=== PATIENT | male | born 1955 | race Caucasian/White ===

== ENCOUNTER 2017-01-15 13:32 | Emergency (ER) | payer SELFPAY ==
[~2017-01-15] VITALS: Ht 172.7 cm; Wt 72.0 kg
[~2017-01-15 13:32] MED LIST: ASPI325T33 PO; CIPR-9 PO; HYDR12.57 PO; LIPI10TA PO; NIFE60TA8 PO; WALKER WHEELS/F1 MIS
[2017-01-15 13:34] VITALS: BP 112/67; PULSE 54; RESP 16; TEMP 98.6; O2SAT 97
--- NOTE | 2017-01-15 14:31 | RADRPT ---
EXAM DATE/TIME: 01/15/2017 14:08 [facility] COMPARISON: CHEST SINGLE AP, January 06, 2017, 11:06. INDICATIONS : General weakness; Possible CVA. MEDICAL HISTORY : Stroke. SURGICAL HISTORY : None. ENCOUNTER: Initial ACUITY: 1 day PAIN SCORE: 0/10 LOCATION: Bilateral chest FINDINGS: A single view of the chest demonstrates the lungs to be symmetrically aerated without evidence of mas s, infiltrate or effusion. The cardiomediastinal contours are unremarkable. Osseous structures are intact. CONCLUSION: No acute disease. Franklyn Brito MD on January 15, 2017 at 14:27 Board Certified Radiologist. This report was verified electronically.
--- NOTE | 2017-01-15 14:48 | RADRPT ---
EXAM DATE/TIME: 01/15/2017 14:04 [facility] COMPARISON: CT BRAIN W/O CONTRAST, January 06, 2017, 11:09. INDICATIONS : Head pain due to fall. RADIATION DOSE: 48.11 CTDIvol (mGy) MEDICAL HISTORY : Cerebrovascular disease. SURGICAL HISTORY : None. ENCOUNTER: Initial ACUITY: 1 day PAIN SCALE: 2/10 LOCATION: Bilateral cranial TECHNIQUE: Multiple contiguous axial images were obtained of the head. Using automated exposure control and adj ustment of the mA and/or kV according to patient size, radiation dose was kept as low as reasonably a chievable to obtain optimal diagnostic quality images. DICOM format image data is available electro nically for review and comparison. FINDINGS: Diffuse cerebral atrophy is noted. Old lacunar infarcts are noted within the bilateral basal ganglia with the largest lacunar infarct noted in the left thalamus. Mild periventricular and subco rtical white matter small vessel ischemic changes are noted bilaterally. There is no acute infarct, acute hemorr yuri, mass effect or extra-axial fluid collections. CONCLUSION: 1. Old lacunar infarcts within the bilateral basal ganglia. 2. Mild periventricular and subcortical white matter small vessel ischemic changes bilaterally. 3. Diffuse cerebral atrophy. 4. No acute infarct, acute hemorrhage, mass effect or extra-axial fluid collections. Josesito Hurley MD on January 15, 2017 at 14:23 Board Certified Radiologist. This report was verified electronically.
[2017-01-15 14:56] LABS: AUTOMATED NEUTROPHIL # 7.4 TH/MM3 (1.8-7.7); BASOPHIL % 0.5 % (0.0-2.0); EOSINOPHIL # 0.1 TH/MM3 (0-0.4); HEMATOCRIT 40.5 % (39.0-51.0); HEMO FLAGS DIFF FINAL; LYMPH % 12.9 % (9.0-44.0); LYMPHOCYTE # 1.3 TH/MM3 (1.0-4.8); MEAN CELL VOLUME 94.4 FL (80.0-100.0); MEAN CORPUSCULAR HEMOGLOBIN 33.5 PG (27.0-34.0); MEAN CORPUSCULAR HGB CONC 35.5 % (32.0-36.0); MONO % 10.1 % (0.0-8.0); NEUT % 75.5 % (16.0-70.0); PLATELET COUNT 320 TH/MM3 (150-450); RED BLOOD COUNT 4.29 MIL/MM3 (4.50-5.90); RED CELL DISTRIBUTION WIDTH 13.3 % (11.6-17.2); WHITE BLOOD COUNT 9.8 TH/MM3 (4.0-11.0)
[2017-01-15 15:12] LABS: APTT (PATIENT) 25.8 SEC (24.3-30.1); INTERNATIONAL NORMALIZED RATIO 0.9 RATIO
[2017-01-15 15:17] LABS: BICARBONATE 23.1 MEQ/L (21.0-32.0); POTASSIUM 3.5 MEQ/L (3.5-5.1)
--- NOTE | 2017-01-15 15:18 | PD ---
HPI Chief Complaint: General Weakness Time Seen by Provider: 14:27 Travel History International Travel<30 days: No Contact w/Intl Traveler<30days: No Traveled to known affect area: No History of Present Illness HPI This 61-year-old man who presents to the emergency department complaining of joint weakness on both his legs went out from underneath him this morning. He describes abrupt onset of symmetric lower extremity weakness. He was recently admitted to the hospital 01/06 through 01/09 with right sided weakness found have a small subacute left lacunar infarct. He denies any other medical history. Workup including MRI, Holter monitor, carotids, all otherwise negative. States he was doing well until today shortly before arrival in both his legs gave out on him. No other recent illness or injury. No other complaints. History Past Medical History Narrative Medical Cerebrovascular disease PNEUMOCCOCAL Vaccine (Year): 3 Social History Alcohol Use: Yes (DAILY ) Tobacco Use: Yes (PACK A DAY ) Allergies-Medications (Allergen,Severity, Reaction): Coded Allergies: No Known Allergies (Verified , 01/06/17) Reported Meds & Prescriptions Reported Meds & Active Scripts Active Hydrochlorothiazide 12.5 Mg Cap 12.5 Mg PO DAILY 30 Days Aspirin EC (Aspirin) 325 Mg Tabdr 325 Mg PO DAILY 30 Days Nifedipine ER 24 HR (Nifedipine) 60 Mg Tab 60 Mg PO DAILY 30 Days Lipitor (Atorvastatin Calcium) 10 Mg Tab 10 Mg PO HS 30 Days Cipro (Ciprofloxacin HCl) 500 Mg Tab 500 Mg PO Q12H 2 Days Walker with Front Wheels (Device) 1 Mis Mis Ea .ROUTE DIRECTED Review of Systems Except as stated in HPI: all other systems reviewed are Neg Physical Exam Narrative GENERAL: Well-appearing 7-year-old man, little bit disheveled, nontoxic. SKIN: Focused skin assessment warm/dry. HEAD: Atraumatic. Normocephalic. EYES: Pupils equal and round. No scleral icterus. No injection or drainage. ENT: No nasal bleeding or discharge. Mucous membranes pink and moist. NECK: Trachea midline. No JVD. CARDIOVASCULAR: Regular rate and rhythm. No murmur appreciated. RESPIRATORY: No accessory muscle use. Clear to auscultation. Breath sounds equal bilaterally. GASTROINTESTINAL: Abdomen soft, non-tender, nondistended. Hepatic and splenic margins not palpable. MUSCULOSKELETAL: No obvious deformities. No clubbing. No cyanosis. No edema. NEUROLOGICAL: Awake and alert. No facial asymmetry. Sensation intact throughout. Strength full and equal upper and lower extremities. No pronator drift. Right lower extremity drift. Gait a little bit wide based and unsteady. Data Data Last Documented VS Vital Signs Date Time Temp Pulse Resp B/P (MAP) Pulse Ox O2 Delivery O2 Flow Rate FiO2 01/15/17 15:04 88 18 98 Room Air 01/15/17 13:34 98.6 112/67 (82) Orders Orders Electrocardiogram (01/15/17 13:47) Prothrombin Time / Inr (Pt) (01/15/17 13:47) Act Partial Throm Time (Ptt) (01/15/17 13:47) Complete Blood Count With Diff (01/15/17 13:47) Basic Metabolic Panel (Bmp) (01/15/17 13:47) Ct Brain W/O Iv Contrast(Rout) (01/15/17 13:47) Chest, Single Ap (01/15/17 13:47) Alcohol (Ethanol) (01/15/17 14:35) Ed Discharge Order (01/15/17 15:38) Labs Laboratory Tests Test 01/15/17 14:15 01/15/17 14:35 White Blood Count 9.8 TH/MM3 Red Blood Count 4.29 MIL/MM3 Hemoglobin 14.4 GM/DL Hematocrit 40.5 % Mean Corpuscular Volume 94.4 FL Mean Corpuscular Hemoglobin 33.5 PG Mean Corpuscular Hemoglobin Concent 35.5 % Red Cell Distribution Width 13.3 % Platelet Count 320 TH/MM3 Mean Platelet Volume 8.6 FL Neutrophils (%) (Auto) 75.5 % Lymphocytes (%) (Auto) 12.9 % Monocytes (%) (Auto) 10.1 % Eosinophils (%) (Auto) 1.0 % Basophils (%) (Auto) 0.5 % Neutrophils # (Auto) 7.4 TH/MM3 Lymphocytes # (Auto) 1.3 TH/MM3 Monocytes # (Auto) 1.0 TH/MM3 Eosinophils # (Auto) 0.1 TH/MM3 Basophils # (Auto) 0.0 TH/MM3 CBC Comment DIFF FINAL Differential Comment Prothrombin Time 10.0 SEC Prothromb Time International Ratio 0.9 RATIO Activated Partial Thromboplast Time 25.8 SEC Blood Urea Nitrogen 26 MG/DL Creatinine 1.37 MG/DL Random Glucose 136 MG/DL Calcium Level 8.6 MG/DL Sodium Level 133 MEQ/L Potassium Level 3.5 MEQ/L Chloride Level 98 MEQ/L Carbon Dioxide Level 23.1 MEQ/L Anion Gap 12 MEQ/L Estimat Glomerular Filtration Rate 53 ML/MIN Ethyl Alcohol Level LESS THAN 3 MG/DL MDM Medical Decision Making Medical Screen Exam Complete: Yes Emergency Medical Condition: Yes Interpretation(s) LABS: CBC unremarkable. BMP unremarkable. Coags unremarkable. Alcohol negative Head CT: Old lacunar infarcts within the bilateral basal ganglia. Mild periventricular white matter small vessel ischemic change bilaterally. Diffuse cerebral atrophy. Differential Diagnosis Generalized weakness, vitamin deficiency, lecture light abnormality, stroke, other Narrative Course Medical decision making INITIAL: Is a 7-year-old man presents emergent from with generalized lower extremity weakness in onset this morning. He appears homeless. He has a friend with him. Recent right sided CVA with extensive workup. Looks well now. Is a little wide based on study. We'll check labs, CT, x-ray, reassess. Diagnosis Primary Impression: Lower extremity weakness Additional Instructions: Take a full dose aspirin daily. Follow up with her primary doctor in the next 2-4 days. Med/Other Pt SpecificInfo: No Change to Meds Disposition: 01 DISCHARGE HOME Condition: Stable Lamin Barahona MD Jan 15, 2017 15:18
--- NOTE | 2017-01-16 14:46 | EKG ---
Date Performed: 01/15/2017 Time Performed: 14:38:17 PTAGE: 61 years EKG: Sinus rhythm WITH FREQUENT VENTRICULAR PREMATURE COMPLEXES WITH FREQUENT SUPRAVENTRICULAR PREMATURE COMPLEXES SEP [place] MYOCARDIAL INFARCTION ARRHYTHMIA IS NEW SINCE PRIOR TRACING ABNORMAL ECG PREVIOUS TRACING : 01/06/2017 11.50 DOCTOR: Tramaine Lebron Interpretating Date/Time 01/16/2017 14:45:38
== END 2017-01-15 16:10 | disposition home or self-care (01) ==
LOC: NEPC 13:32
DX: M62.81 Muscle weakness (generalized) (principal); I25.2 Old myocardial infarction; R94.31 Abnormal electrocardiogram [ECG] [EKG]; F17.200 Nicotine dependence, unspecified, uncomplicated; Z86.73 Personal history of transient ischemic attack (TIA), and cerebral infarction without residual deficits; Z79.82 Long term (current) use of aspirin; Z79.899 Other long term (current) drug therapy
CPT/HCPCS: 70450; 71010; 80048; 80307; 85025; 85610; 85730; 93005

== ENCOUNTER 2017-01-22 18:03 | Observation (INO) | payer SELFPAY ==
[~2017-01-22] VITALS: Ht 167.6 cm; Wt 65.0 kg
[2017-01-22 18:15] VITALS: BP 148/87; PULSE 98; RESP 16; TEMP 98.6; O2SAT 99
--- NOTE | 2017-01-22 20:32 | PD ---
HPI Chief Complaint: Altered Mental Status Time Seen by Provider: 20:20 Travel History International Travel<30 days: No Contact w/Intl Traveler<30days: No Traveled to known affect area: No History of Present Illness HPI patient arrives stating he doesn't feel right, that he is "confused", very nebulous on details, patient is able to move all extremities well. denies deshpande/cp /abdpain/n/v/d/....after some talking, pt agreed he had been drinking etoh PFSH Past Medical History Hx Anticoagulant Therapy: Yes Arthritis: No Asthma: No Autoimmune Disease: No Heart Rhythm Problems: No Cancer: No Cardiovascular Problems: No High Cholesterol: No Chemotherapy: No Chest Pain: No Congestive Heart Failure: No Cirrhosis: No COPD: No Cerebrovascular Accident: Yes Diabetes: No Diminished Hearing: No Endocrine: No GERD: No Glaucoma: No Genitourinary: No Hepatitis: No Hiatal Hernia: No Hypertension: No Immune Disorder: No Kidney Stones: No Musculoskeletal: No Neurologic: No Psychiatric: No Reproductive: No Respiratory: No Myocardial Infarction: No Radiation Therapy: No Renal Failure: No Seizures: No Sleep Apnea: No Thyroid Disease: No Ulcer: No PNEUMOCCOCAL Vaccine (Year): 3 Past Surgical History Abdominal Surgery: No AICD: No Genitourinary Surgery: No Pacemaker: No Thoracic Surgery: No Social History Alcohol Use: Yes (DAILY ) Tobacco Use: Yes (PACK A DAY ) Substance Use: No Allergies-Medications (Allergen,Severity, Reaction): Coded Allergies: No Known Allergies (Verified , 01/06/17) Reported Meds & Prescriptions Reported Meds & Active Scripts Active Hydrochlorothiazide 12.5 Mg Cap 12.5 Mg PO DAILY 30 Days Aspirin EC (Aspirin) 325 Mg Tabdr 325 Mg PO DAILY 30 Days Nifedipine ER 24 HR (Nifedipine) 60 Mg Tab 60 Mg PO DAILY 30 Days Lipitor (Atorvastatin Calcium) 10 Mg Tab 10 Mg PO HS 30 Days Cipro (Ciprofloxacin HCl) 500 Mg Tab 500 Mg PO Q12H 2 Days Walker with Front Wheels (Device) 1 Mis Mis Ea .ROUTE DIRECTED Review of Systems ROS Limitations: Poor Historian, Other: Except as stated in HPI: all other systems reviewed are Neg Physical Exam Narrative GENERAL: poorly kept, pants have been urinated on, SKIN: Warm and dry. HEAD: Atraumatic. Normocephalic. EYES: Pupils equal and round. No scleral icterus. No injection or drainage. ENT: No nasal bleeding or discharge. Mucous membranes pink and moist. NECK: Trachea midline. No JVD. CARDIOVASCULAR: Regular rate and rhythm. RESPIRATORY: No accessory muscle use. Clear to auscultation. Breath sounds equal bilaterally. GASTROINTESTINAL: Abdomen soft, non-tender, nondistended. Hepatic and splenic margins not palpable. MUSCULOSKELETAL: Extremities without clubbing, cyanosis, or edema. No obvious deformities. NEUROLOGICAL: Awake and alert. No obvious cranial nerve deficits. Motor grossly within normal limits. mild hemiparesis of rle 4/5 strength, all other extremities 5/5. Normal speech. PSYCHIATRIC: Appropriate mood and affect; insight and judgment normal. Data Data Last Documented VS Vital Signs Date Time Temp Pulse Resp B/P (MAP) Pulse Ox O2 Delivery O2 Flow Rate FiO2 01/22/17 20:18 74 97 Room Air 01/22/17 18:15 98.6 16 148/87 (107) Orders Orders Complete Blood Count With Diff (01/22/17 20:07) Comprehensive Metabolic Panel (01/22/17 20:07) Prothrombin Time / Inr (Pt) (01/22/17 20:07) Act Partial Throm Time (Ptt) (01/22/17 20:07) Troponin I (01/22/17 20:07) Blood Glucose (01/22/17 20:07) Ecg Monitoring (01/22/17 20:07) Iv Access Insert/Monitor (01/22/17 20:07) Oximetry (01/22/17 20:07) Urinalysis - C+S If Indicated (01/22/17 20:20) Ct Brain W/O Iv Contrast(Rout) (01/22/17 20:20) Drug Screen, Random Urine (01/22/17 20:20) Alcohol (Ethanol) (01/22/17 18:42) Electrocardiogram (01/22/17 21:36) Labs Laboratory Tests Test 01/22/17 18:42 01/22/17 20:20 White Blood Count 8.2 TH/MM3 Red Blood Count 3.79 MIL/MM3 Hemoglobin 12.7 GM/DL Hematocrit 36.0 % Mean Corpuscular Volume 95.1 FL Mean Corpuscular Hemoglobin 33.5 PG Mean Corpuscular Hemoglobin Concent 35.2 % Red Cell Distribution Width 13.2 % Platelet Count 247 TH/MM3 Mean Platelet Volume 8.9 FL Neutrophils (%) (Auto) 64.8 % Lymphocytes (%) (Auto) 21.6 % Monocytes (%) (Auto) 9.4 % Eosinophils (%) (Auto) 2.8 % Basophils (%) (Auto) 1.4 % Neutrophils # (Auto) 5.3 TH/MM3 Lymphocytes # (Auto) 1.8 TH/MM3 Monocytes # (Auto) 0.8 TH/MM3 Eosinophils # (Auto) 0.2 TH/MM3 Basophils # (Auto) 0.1 TH/MM3 CBC Comment DIFF FINAL Differential Comment Prothrombin Time 9.7 SEC Prothromb Time International Ratio 0.9 RATIO Activated Partial Thromboplast Time 26.6 SEC Blood Urea Nitrogen 12 MG/DL Creatinine 0.73 MG/DL Random Glucose 70 MG/DL Total Protein 6.9 GM/DL Albumin 3.0 GM/DL Calcium Level 8.2 MG/DL Alkaline Phosphatase 41 U/L Aspartate Amino Transf (AST/SGOT) 34 U/L Alanine Aminotransferase (ALT/SGPT) 34 U/L Total Bilirubin 0.3 MG/DL Sodium Level 129 MEQ/L Potassium Level 4.0 MEQ/L Chloride Level 97 MEQ/L Carbon Dioxide Level 20.9 MEQ/L Anion Gap 11 MEQ/L Estimat Glomerular Filtration Rate 110 ML/MIN Troponin I 0.33 NG/ML Ethyl Alcohol Level 227 MG/DL Urine Color LIGHT-YELLOW Urine Turbidity CLEAR Urine pH 5.0 Urine Specific [place] 1.008 Urine Protein NEG mg/dL Urine Glucose (UA) NEG mg/dL Urine Ketones NEG mg/dL Urine Occult Blood NEG Urine Nitrite NEG Urine Bilirubin NEG Urine Urobilinogen LESS THAN 2.0 MG/DL Urine Leukocyte Esterase NEG Urine RBC LESS THAN 1 /hpf Urine WBC 1 /hpf Urine Bacteria RARE /hpf Urine Hyaline Casts 1 /lpf Microscopic Urinalysis Comment CULT NOT INDICATED Urine Opiates Screen NEG Urine Barbiturates Screen NEG Urine Amphetamines Screen NEG Urine Benzodiazepines Screen NEG Urine Cocaine Screen NEG Urine Cannabinoids Screen NEG MDM Medical Decision Making Medical Screen Exam Complete: Yes Emergency Medical Condition: Yes Medical Record Reviewed: Yes Differential Diagnosis ich v electrolyte v etoh intoxication v chronic hemiparesis from previous cva Narrative Course upon evaluation, it was noted that patient had 5/5 to rue/lue/lle but rle 4/ 5.....patient has seen previously by neurologist and cleared. case management attempted to place patient and gave resources packet but pt refused and stated that he lives in the [facility] and that's were he lives and doesn't want to go anywhere else. patient currently after observation in er has improved on his "confusion" state and is nearly at this baseline Diagnosis Primary Impression: etoh intoxication Additional Impression: Elevated troponin Admitting Information Admitting Physician Requests: Observation Pierce Somers MD Jan 22, 2017 20:32
[2017-01-22 21:12] LABS: AUTOMATED NEUTROPHIL # 5.3 TH/MM3 (1.8-7.7); BASOPHIL # 0.1 TH/MM3 (0-0.2); BASOPHIL % 1.4 % (0.0-2.0); EOSINOPHIL # 0.2 TH/MM3 (0-0.4); EOSINOPHIL % 2.8 % (0.0-4.0); HEMO FLAGS DIFF FINAL; LYMPH % 21.6 % (9.0-44.0); LYMPHOCYTE # 1.8 TH/MM3 (1.0-4.8); MEAN CELL VOLUME 95.1 FL (80.0-100.0); MEAN CORPUSCULAR HEMOGLOBIN 33.5 PG (27.0-34.0); MEAN CORPUSCULAR HGB CONC 35.2 % (32.0-36.0); MONO % 9.4 % (0.0-8.0); NEUT % 64.8 % (16.0-70.0); PLATELET COUNT 247 TH/MM3 (150-450); RED BLOOD COUNT 3.79 MIL/MM3 (4.50-5.90); RED CELL DISTRIBUTION WIDTH 13.2 % (11.6-17.2); WHITE BLOOD COUNT 8.2 TH/MM3 (4.0-11.0)
--- NOTE | 2017-01-22 21:17 | RADRPT ---
EXAM DATE/TIME: 01/22/2017 20:58 [facility] COMPARISON: CT BRAIN W/O CONTRAST, January 15, 2017, 14:04. INDICATIONS : Altered mental status. RADIATION DOSE: 31.01 CTDIvol (mGy) MEDICAL HISTORY : Stroke. SURGICAL HISTORY : None. ENCOUNTER: Initial ACUITY: 1 day PAIN SCALE: 0/10 LOCATION: cranial TECHNIQUE: Multiple contiguous axial images were obtained of the head. Using automated exposure control and adj ustment of the mA and/or kV according to patient size, radiation dose was kept as low as reasonably a chievable to obtain optimal diagnostic quality images. DICOM format image data is available electro nically for review and comparison. FINDINGS: CEREBRUM: Atrophy with resulting ventriculomegaly. Chronic lacunar infarctions involving the basal ganglia bila terally as well as the left thalamus. Periventricular low attenuation change involving both cerebral hemispheres No evidence of midline shift, mass lesion, hemorrhage or acute infarction. No extra-axia l fluid collections are seen. POSTERIOR FOSSA: The cerebellum and brainstem are intact. The 4th ventricle is midline. The cerebellopontine angle i s unremarkable. EXTRACRANIAL: The visualized portion of the orbits is intact. SKULL: The calvaria is intact. No evidence of skull fracture. CONCLUSION: 1. No acute intracranial abnormality. 2. Atrophy and chronic small vessel ischemic change. Brayan Gotti Jr., MD on January 22, 2017 at 21:14 Board Certified Radiologist. This report was verified electronically.
[2017-01-22 21:19] LABS: APTT (PATIENT) 26.6 SEC (24.3-30.1); INTERNATIONAL NORMALIZED RATIO 0.9 RATIO; PROTHROMBIN TIME - PATIENT 9.7 SEC (9.8-11.6)
[2017-01-22 21:21] LABS: ANION GAP 11 MEQ/L (5-15); AST (GOT) 34 U/L (15-37); BICARBONATE 20.9 MEQ/L (21.0-32.0); BLOOD UREA NITROGEN 12 MG/DL (7-18); CHLORIDE 97 MEQ/L (98-107); GLOMERULAR FILTRATION RATE 110 ML/MIN (>89); SODIUM (NA) 129 MEQ/L (136-145)
[2017-01-22 21:22] LABS: ALT (GPT) 34 U/L (12-78)
[2017-01-22 21:26] LABS: ALCOHOL 227 MG/DL (0-5); ALKALINE PHOSPHATASE 41 U/L (45-117); TOTAL BILIRUBIN ADULT 0.3 MG/DL (0.2-1.0)
[2017-01-22 21:43] LABS: BACTERIA, URINE RARE /hpf; BLOOD, URINE NEG (NEG); COMMENT (UR) CULT NOT INDICATED; CULTURE IF INDICATED CULT NOT INDICATED; GLUCOSE,URINE NEG (NEG); HYALINE CAST, URINE 1 /lpf (RARE); KETONE, URINE NEG (NEG); NITRITE,URINE NEG (NEG); URINE COLOR LIGHT-YELLOW (YELLW/STRAW)
[2017-01-22] MEDS ORDERED: THIAMINE HCL 100 MG TAB PO ONE (22:15)
[2017-01-22] MEDS ORDERED: LORazepam 2 MG/ML VIAL IV PUSH PRN (22:15)
[2017-01-22] MEDS ORDERED: NALOXONE HCL 0.4 MG/ML AMP IV PUSH PRN (22:15)
[2017-01-22] MEDS ORDERED: SODIUM CHLORIDE 0.9% FLUSH 10 ML FLUSH IV FLUSH PRN (22:15)
--- NOTE | 2017-01-22 23:17 | HHI.HP ---
[facility] Service [place] [facility] Primary Care Physician No Primary Care Physician Admission Diagnosis ELEVATED TROPONIN, WEAKNESS Diagnoses: Chief Complaint: falls Travel History International Travel<30 Days: No Contact w/Intl Traveler <30 Da: No Traveled to Known Affected Are: No History of Present Illness 61 y/o male with a history of HTN (not on any medication and denies a history) and CVA was brought into the ED after being found stumbling and falling. Patient at first was only oriented x 2 but after waking up he became oriented x 3. He states someone brought be here because he was falling down. He states he only drank a 24 oz beer today and that was this morning, he states he was not drunk. He denies having any chest pain, sob, cough, fever or chills. He states he is homeless and does not take any medications, and denies having a history of medical problems. Review of Systems Except as stated in HPI: all other systems reviewed are Neg Past Family Social History Past Medical History Denies any medical history, states he takes no medication Per EMR: HTN, CVA Past Surgical History Denies any surgical history Reported Medications Reported Meds & Active Scripts Active Hydrochlorothiazide 12.5 Mg Cap 12.5 Mg PO DAILY 30 Days Aspirin EC (Aspirin) 325 Mg Tabdr 325 Mg PO DAILY 30 Days Nifedipine ER 24 HR (Nifedipine) 60 Mg Tab 60 Mg PO DAILY 30 Days Lipitor (Atorvastatin Calcium) 10 Mg Tab 10 Mg PO HS 30 Days Cipro (Ciprofloxacin HCl) 500 Mg Tab 500 Mg PO Q12H 2 Days Walker with Front Wheels (Device) 1 Mis Mis Ea .ROUTE DIRECTED Allergies: Coded Allergies: No Known Allergies (Verified , 01/06/17) Active Ordered Medications Current Medications Medications (Trade) Dose Ordered Sig/Luis M Route Start Time Stop Time Status Last Admin (NS Flush) 2 ml UNSCH PRN IV FLUSH 01/22/17 22:15 (NS Flush) 2 ml BID IV FLUSH 01/23/17 09:00 (Narcan Inj) 0.4 mg UNSCH PRN IV PUSH 01/22/17 22:15 (Ativan Inj) 1 mg Q2H PRN IV PUSH 01/22/17 22:15 (Librium) 20 mg QID PO 01/23/17 09:00 (Vitamin B1) 100 mg DAILY PO 01/23/17 09:00 Family History States he does not know there history Social History Tobacco use: 1 PPD Alcohol use: one 24oz beer a day Illicit drug use: Denies Physical Exam Vital Signs Vital Signs Date Time Temp Pulse Resp B/P (MAP) Pulse Ox O2 Delivery O2 Flow Rate FiO2 01/22/17 20:18 74 97 Room Air 01/22/17 18:15 98.6 98 16 148/87 (107) 99 Physical Exam GENERAL: This is an unkept homeless man in [facility] SKIN: No rashes, ecchymoses or lesions. Cool and dry. HEAD: Atraumatic. Normocephalic. EYES: Pupils equal round and reactive. Extraocular motions intact. ENT: Nose without bleeding, purulent drainage or septal hematoma. Airway patent. NECK: Trachea midline. No JVD or lymphadenopathy. Supple, nontender, no meningeal signs. CARDIOVASCULAR: Regular rate and rhythm without murmurs, gallops, or rubs. RESPIRATORY: Diminished at bases. No wheezes, rales, or rhonchi. GASTROINTESTINAL: Abdomen soft, non-tender, nondistended. BS x 4 MUSCULOSKELETAL: Extremities without clubbing, cyanosis, or edema. No joint tenderness, effusion, or edema noted. No calf tenderness. NEUROLOGICAL: Awake and alert. Motor and sensory grossly within normal limits. Slight 4/5 RLE residual weakness. Normal speech. Laboratory Laboratory Tests Test 01/22/17 18:42 01/22/17 20:20 White Blood Count 8.2 Red Blood Count 3.79 Hemoglobin 12.7 Hematocrit 36.0 Mean Corpuscular Volume 95.1 Mean Corpuscular Hemoglobin 33.5 Mean Corpuscular Hemoglobin Concent 35.2 Red Cell Distribution Width 13.2 Platelet Count 247 Mean Platelet Volume 8.9 Neutrophils (%) (Auto) 64.8 Lymphocytes (%) (Auto) 21.6 Monocytes (%) (Auto) 9.4 Eosinophils (%) (Auto) 2.8 Basophils (%) (Auto) 1.4 Neutrophils # (Auto) 5.3 Lymphocytes # (Auto) 1.8 Monocytes # (Auto) 0.8 Eosinophils # (Auto) 0.2 Basophils # (Auto) 0.1 CBC Comment DIFF FINAL Differential Comment Prothrombin Time 9.7 Prothromb Time International Ratio 0.9 Activated Partial Thromboplast Time 26.6 Blood Urea Nitrogen 12 Creatinine 0.73 Random Glucose 70 Total Protein 6.9 Albumin 3.0 Calcium Level 8.2 Alkaline Phosphatase 41 Aspartate Amino Transf (AST/SGOT) 34 Alanine Aminotransferase (ALT/SGPT) 34 Total Bilirubin 0.3 Sodium Level 129 Potassium Level 4.0 Chloride Level 97 Carbon Dioxide Level 20.9 Anion Gap 11 Estimat Glomerular Filtration Rate 110 Troponin I 0.33 Ethyl Alcohol Level 227 Urine Color LIGHT-YELLOW Urine Turbidity CLEAR Urine pH 5.0 Urine Specific Divide 1.008 Urine Protein NEG Urine Glucose (UA) NEG Urine Ketones NEG Urine Occult Blood NEG Urine Nitrite NEG Urine Bilirubin NEG Urine Urobilinogen LESS THAN 2.0 Urine Leukocyte Esterase NEG Urine RBC LESS THAN 1 Urine WBC 1 Urine Bacteria RARE Urine Hyaline Casts 1 Microscopic Urinalysis Comment CULT NOT INDICATED Urine Opiates Screen NEG Urine Barbiturates Screen NEG Urine Amphetamines Screen NEG Urine Benzodiazepines Screen NEG Urine Cocaine Screen NEG Urine Cannabinoids Screen NEG Result Diagram: 01/22/17184101/22/171841 Imaging Last Impressions Head CT 01/22/172019 Signed Impressions: Service Date/Time: Sunday, January 22, 2017 20:58 - CONCLUSION: 1. No acute intracranial abnormality. 2. Atrophy and chronic small vessel ischemic change. MD Iman Boo Jr. VTE Risk Assessment Caprini VTE Risk Assessment: Mod/High Risk (score >= 2) Caprini Risk Assessment Model Point Value = 1 Point Value = 2 Point Value = 3 Point Value = 5 Age 41-60 Minor surgery BMI > 25 kg/m2 Swollen legs Varicose veins or History of unexplained or recurrent spontaneous Oral contraceptives or hormone replacement Sepsis (< 1 month) Serious lung disease, including pneumonia (< 1 month) Abnormal pulmonary function Acute myocardial infarction Congestive heart failure (< 1 month) History of inflammatory bowel disease Medical patient at bed rest Age 61-74 Arthroscopic surgery Major open surgery (> 45 min) Laparoscopic surgery (> 45 min) Malignancy Confined to bed (> 72 hours) Immobilizing plaster cast Central venous access Age >= 75 History of VTE Family history of VTE Factor V Leiden Prothrombin [id number] Lupus anticoagulant Anticardiolipin antibodies Elevated serum homocysteine Heparin-induced thrombocytopenia Other congenital or acquired thrombophilia Stroke (< 1 month) Elective arthroplasty Hip, pelvis, or leg fracture Acute spinal cord injury (< 1 month) Prophylaxis Regimen Total Risk Factor Score Risk Level Prophylaxis Regimen 0-1 Low Early ambulation 2 Moderate Order ONE of the following: *Sequential Compression Device (SCD) *Heparin 5000 units SQ BID 3-4 Higher Order ONE of the following medications: *Heparin 5000 units SQ TID *Enoxaparin/Lovenox 40 mg SQ daily (WT < 150 kg, CrCl > 30 mL/min) *Enoxaparin/Lovenox 30 mg SQ daily (WT < 150 kg, CrCl > 10-29 mL/min) *Enoxaparin/Lovenox 30 mg SQ BID (WT < 150 kg, CrCl > 30 mL/min) AND/OR *Sequential Compression Device (SCD) 5 or more Highest Order ONE of the following medications: *Heparin 5000 units SQ TID (Preferred with Epidurals) *Enoxaparin/Lovenox 40 mg SQ daily (WT < 150 kg, CrCl > 30 mL/min) *Enoxaparin/Lovenox 30 mg SQ daily (WT < 150 kg, CrCl > 10-29 mL/min) *Enoxaparin/Lovenox 30 mg SQ BID (WT < 150 kg, CrCl > 30 mL/min) AND *Sequential Compression Device (SCD) Assessment and Plan Problem List: (1) Elevated troponin ICD Code: R74.8 - Abnormal levels of other serum enzymes Status: Acute (2) ETOH abuse ICD Code: F10.10 - Alcohol abuse, uncomplicated (3) Acute encephalopathy ICD Code: G93.40 - Encephalopathy, unspecified Status: Acute Assessment and Plan 61 y/o male with a history of HTN (not on any medication and denies a history) and CVA was brought into the ED after being found stumbling and falling. Acute toxic encephalopathy suspected from ETOH resulting in falls Head CT reviewed and shows no acute abnormalities. -Neuro checks -PT eval, fall precautions Elevated troponin, no chest pain r/o ACS Troponin .33, recently .11 on 01/07 -Serial troponin and EKGs -Monitor telemetry ETOH abuse, chronic -Encouraged to quit -Withdrawal precautions -Ativan PRN, Thiamine daily, Librium QID DVT prophylaxis: SCDs Discussed Condition With Patient and Michaela Starkey Jan 22, 2017 23:17
[2017-01-22 23:37] VITALS: BP 134/81; PULSE 72; RESP 18; TEMP 97.9; O2SAT 97
[2017-01-23 03:52] VITALS: BP 152/93; PULSE 77; RESP 20; TEMP 97.9; O2SAT 96
[2017-01-23] MEDS ORDERED: LORazepam 2 MG/ML VIAL IV PUSH PRN ×4 (06:45)
[2017-01-23] MEDS ORDERED: BISACODYL 10 MG SUPP RECTAL PRN (06:45)
[2017-01-23] MEDS ORDERED: FLUMAZENIL 0.5 MG/5 ML VIAL IV PUSH PRN (06:45)
[2017-01-23] MEDS ORDERED: LACTULOSE SYRUP 20 GM/30 ML CUP PO PRN (06:45)
[2017-01-23] MEDS ORDERED: ONDANSETRON HCL 4 MG/2 ML VIAL IVP PRN (06:45)
[2017-01-23] MEDS ORDERED: LORazepam 2 MG TAB PO PRN (06:45)
[2017-01-23] MEDS ORDERED: MAGNESIUM HYDROXIDE SUSP 30 ML CUP PO PRN (06:45)
[2017-01-23] MEDS ORDERED: ACETAMINOPHEN 325 MG TAB PO PRN ×2 (06:45)
[2017-01-23] MEDS ORDERED: HALOPERIDOL LACTATE 5 MG/ML AMP IM PRN (06:45)
[2017-01-23] MEDS ORDERED: SENNOSIDES 8.6 MG TAB PO PRN (06:45)
[2017-01-23] MEDS ORDERED: LORazepam 1 MG TAB PO PRN (06:45)
[2017-01-23 07:06] VITALS: PULSE 82
[2017-01-23] MEDS ORDERED: SODIUM CHLOR 0.9% 1000 ML INJ 1,000 ML IV SCH (07:30)
--- NOTE | 2017-01-23 07:32 | EKG ---
Date Performed: 01/23/2017 Time Performed: 01:31:55 PTAGE: 61 years EKG: Sinus rhythm WITH OCCASIONAL ECTOPIC PREMATURE COMPLEXES BORDERLINE ECG No significant change from prior electroc ardiogram. PREVIOUS TRACING : 01/15/2017 14.38 DOCTOR: Lalito Sow Interpretating Date/Time 01/23/2017 07:32:35
[2017-01-23 08:10] VITALS: BP 180/99; PULSE 70; RESP 18; TEMP 98.3; O2SAT 95
[2017-01-23] MEDS ORDERED: FOLIC ACID 1 MG TAB PO SCH (09:00)
[2017-01-23] MEDS ORDERED: DOCUSATE SODIUM 50 MG/SENNA 8.6 MG TAB PO SCH (09:00)
[2017-01-23] MEDS ORDERED: NIFEdipine 60 MG SUSTAINED RELEASE TAB PO SCH (09:00)
[2017-01-23] MEDS ORDERED: ASPIRIN EC 325 MG TABEC PO SCH (09:00)
[2017-01-23] MEDS ORDERED: SODIUM CHLORIDE 0.9% FLUSH 10 ML FLUSH IV FLUSH SCH (09:00)
[2017-01-23] MEDS ORDERED: THIAMINE HCL 100 MG TAB PO SCH (09:00)
[2017-01-23] MEDS ORDERED: MULTIVITAMINS/MINERALS THERAPEUTIC TAB PO SCH (09:00)
[2017-01-23 10:16] LABS: BICARBONATE 21.1 MEQ/L (21.0-32.0); POTASSIUM 4.8 MEQ/L (3.5-5.1)
[2017-01-23] MEDS ORDERED: LISI-519 PO (11:13)
[2017-01-23] MEDS ORDERED: THIA100 PO (11:13)
[2017-01-23] MEDS ORDERED: LIPI10TA PO (11:13)
[2017-01-23] MEDS ORDERED: FOLI1TAB6 PO (11:13)
[2017-01-23] MEDS ORDERED: NIFE60TA8 PO (11:13)
[2017-01-23] MEDS ORDERED: ASPI325T33 PO (11:13)
--- NOTE | 2017-01-23 11:15 | HHI.DCPOC ---
Discharge Care Plan Diagnosis: (1) HTN (hypertension) (2) Elevated troponin (3) Hemiparesis due to recent cerebral infarction (4) Acute encephalopathy (5) ETOH abuse Your Health Problems Are: Difficulty with ADL Goals to Promote Your Health Please abstain from all alcohol consumption * To prevent worsening of your condition and complications * To maintain your health at the optimal level Directions to Meet Your Goals Take your medications as prescribed Follow your dietary instruction Follow activity as directed Keep your appointments as scheduled Take your immunizations and boosters as scheduled If your symptoms worsen call your PCP, if no PCP go to Urgent Care Center or Emergency Room Smoking is Dangerous to Your Health. Avoid second hand smoke Call the 24-hour hour crisis hotline for domestic abuse at Shobha Lemon Jan 23, 2017 11:15
--- NOTE | 2017-01-23 11:15 | HHI.PR ---
Subjective Remarks Follow-up encephalopathy. Patient is awake and alert. Offers no complaints. Denies chest pain and shortness of breath. Discussed with RN Objective Vitals Vital Signs Date Time Temp Pulse Resp B/P (MAP) Pulse Ox O2 Delivery O2 Flow Rate FiO2 01/23/17 10:58 01/23/17 08:10 98.3 70 18 180/99 (126) 95 01/23/17 03:52 97.9 77 20 152/93 (112) 96 01/22/17 23:37 97.9 72 18 134/81 (98) 97 01/22/17 20:18 74 97 Room Air 01/22/17 18:15 98.6 98 16 148/87 (107) 99 I/O 01/22/17 01/22/17 01/22/17 01/23/17 01/23/17 01/23/17 07:00 15:00 23:00 07:00 15:00 23:00 Intake Total 200 ml 50 ml Balance 200 ml 50 ml Intake Oral 200 ml 50 ml Result Diagram: 01/22/17 1842 01/23/1745 Imaging Last Impressions Head CT 01/22/172019 Signed Impressions: Service Date/Time: Sunday, January 22, 2017 20:58 - CONCLUSION: 1. No acute intracranial abnormality. 2. Atrophy and chronic small vessel ischemic change. Brayan Gotti Jr., MD Objective Remarks GENERAL: This is an unkept homeless man in [facility] SKIN: No rashes, ecchymoses or lesions. Cool and dry. CARDIOVASCULAR: Regular rate and rhythm without murmurs, gallops, or rubs. RESPIRATORY: Diminished at bases. No wheezes, rales, or rhonchi. GASTROINTESTINAL: Abdomen soft, non-tender, nondistended. BS x 4 MUSCULOSKELETAL: Extremities without clubbing, cyanosis, or edema. No joint tenderness, effusion, or edema noted. No calf tenderness. NEUROLOGICAL: Awake and alert. Motor and sensory grossly within normal limits. Slight 4/5 RLE residual weakness. Normal speech. Procedures none A/P Problem List: (1) Elevated troponin ICD Code: R74.8 - Abnormal levels of other serum enzymes Status: Acute (2) ETOH abuse ICD Code: F10.10 - Alcohol abuse, uncomplicated (3) Acute encephalopathy ICD Code: G93.40 - Encephalopathy, unspecified Status: Acute Assessment and Plan 61 y/o male with a history of HTN (not on any medication and denies a history) and CVA was brought into the ED after being found stumbling and falling. Acute toxic encephalopathy suspected from ETOH resulting in falls Head CT reviewed and shows no acute abnormalities. -Neuro checks -PT eval, fall precautions Elevated troponin, no chest pain. EKG without acute ST elevation. This is secondary to falls. Continue aspirin. May undergo outpatient stress test ETOH abuse, chronic -Encouraged to quit -Withdrawal precautions -Ativan PRN, Thiamine daily, Librium QID Hyponatremia, mild. This is secondary to hydrochlorothiazide and alcohol. We' ll monitor DVT prophylaxis: SCDs Discharge Planning Discharge patient to home Condition on discharge: Improved Regular Diet as tolerated Ad Renee activity no driving Rx written: Lisinopril, thiamine and folic acid Follow-up with primary care physician Yossi Kemp MD Jan 23, 2017 11:15
[2017-01-23] MEDS ORDERED: LISINOPRIL 5 MG TAB PO ONE (11:30)
[2017-01-23 11:48] VITALS: BP 143/82; PULSE 92; RESP 18; TEMP 98.6; O2SAT 95
[2017-01-23 13:21] VITALS: PULSE 92
[2017-01-23 13:40] LABS: AUTOMATED NEUTROPHIL # 5.8 TH/MM3 (1.8-7.7); BASOPHIL # 0.1 TH/MM3 (0-0.2); BASOPHIL % 1.4 % (0.0-2.0); EOSINOPHIL % 0.7 % (0.0-4.0); HEMATOCRIT 41.8 % (39.0-51.0); HEMO FLAGS DIFF FINAL; LYMPH % 13.7 % (9.0-44.0); MEAN CELL VOLUME 95.6 FL (80.0-100.0); MEAN CORPUSCULAR HEMOGLOBIN 33.1 PG (27.0-34.0); MEAN CORPUSCULAR HGB CONC 34.7 % (32.0-36.0); MONO % 8.1 % (0.0-8.0); NEUT % 76.1 % (16.0-70.0); PLATELET COUNT 272 TH/MM3 (150-450); RED BLOOD COUNT 4.37 MIL/MM3 (4.50-5.90); RED CELL DISTRIBUTION WIDTH 13.3 % (11.6-17.2); WHITE BLOOD COUNT 7.6 TH/MM3 (4.0-11.0)
--- NOTE | 2017-01-23 13:53 | EKG ---
Date Performed: 01/23/2017 Time Performed: 07:50:04 PTAGE: 61 years EKG: Sinus rhythm SEPTAL MYOCARDIAL INFARCTION ABNORMAL ECG No significant change from prior electrocardiogram. PREVIOUS TRACING : 01/23/2017 01.31 DOCTOR: Lalito Sow Interpretating Date/Time 01/23/2017 13:51:57
[2017-01-23] MEDS ORDERED: ATORVASTATIN 10 MG TAB PO SCH (21:00)
[2017-01-24] MEDS ORDERED: LISINOPRIL 5 MG TAB PO SCH (09:00)
== END 2017-01-23 18:16 | disposition home or self-care (01) ==
LOC: NEPE 18:03 → NEDA 22:13 → NEPFCDU 22:59
PROVIDERS: ADMIT Internal Medicine; ATTEND Internal Medicine
DX: R74.8 Abnormal levels of other serum enzymes (principal); F10.10 Alcohol abuse, uncomplicated; G93.40 Encephalopathy, unspecified; T50.2X5A Adverse effect of carbonic-anhydrase inhibitors, benzothiadiazides and other diuretics, initial encounter; I10 Essential (primary) hypertension; E87.1 Hypo-osmolality and hyponatremia; R41.82 Altered mental status, unspecified; G81.90 Hemiplegia, unspecified affecting unspecified side; F10.129 Alcohol abuse with intoxication, unspecified; R94.31 Abnormal electrocardiogram [ECG] [EKG]; F17.200 Nicotine dependence, unspecified, uncomplicated; Z59.0 Homelessness; Z79.899 Other long term (current) drug therapy; Z79.82 Long term (current) use of aspirin; Z86.73 Personal history of transient ischemic attack (TIA), and cerebral infarction without residual deficits
CPT/HCPCS: 70450; 80048; 80053; 80307; 81001; 82550; 84484; 85025; 85610; 85730; 93005; 96360; G0378; G8987-GP; G8988-GP; J7030

== ENCOUNTER 2017-02-12 08:31 | Inpatient (IN) | payer SELFPAY ==
[2017-02-12] VITALS (7 sets, daily range): BP systolic 160–188; BP diastolic 87–103; PULSE 62–98; RESP 18–23; TEMP 98.1–98.6; O2SAT 96–98
[~2017-02-12] VITALS: Ht 172.7 cm; Wt 70.0 kg
[~2017-02-12 08:31] MED LIST changes: -CIPR-9 PO; +FOLI1TAB6 PO; -HYDR12.57 PO; +LISI-519 PO; +THIA100 PO
--- NOTE | 2017-02-12 08:58 | PD ---
HPI Chief Complaint: Neuro Symptoms/ Deficits Time Seen by Provider: 08:58 Travel History International Travel<30 days: No Contact w/Intl Traveler<30days: No Traveled to known affect area: No History of Present Illness HPI 61-year-old male came to the emergency room brought by EMS for right leg weakness. Patient is homeless and says that he noticed the weakness last night at some point. However this morning when he woke up and saw that he was unable to use his leg he decided to call 911. Patient was seen in the emergency room and admitted about one week ago for lacunar infarct. He was discharged home with medications including 325 mg of aspirin. Patient showed me that he has these medications and has been taking them. He is not sure if he took the aspirin yesterday. He also complains of some right upper extremity weakness but that has been there since the last time. Vital signs were stable. Patient is awake and answering questions appropriately. PFSH Past Medical History Narrative Medical List of his past medical, surgical, social and family history is reviewed from the nursing note. Hx Anticoagulant Therapy: Yes Arthritis: No Asthma: No Autoimmune Disease: No Blood Disorders: No Anxiety: No Depression: No Heart Rhythm Problems: No Cancer: No Cardiovascular Problems: No High Cholesterol: No Chemotherapy: No Chest Pain: No Congestive Heart Failure: No Cirrhosis: No COPD: No Cerebrovascular Accident: Yes Diabetes: No Diminished Hearing: No Endocrine: No GERD: No Glaucoma: No Genitourinary: Yes (incontinent periods) Hepatitis: No Hiatal Hernia: No Hypertension: Yes Immune Disorder: No Kidney Stones: No Musculoskeletal: Yes (weak generalized and right side slightly weaker) Neurologic: Yes (hx stroke and it effected right side) Psychiatric: Yes (anxiety and alcohol abuse) Reproductive: No Respiratory: No Myocardial Infarction: No Radiation Therapy: No Renal Failure: No Seizures: No Sleep Apnea: No Thyroid Disease: No Ulcer: No PNEUMOCCOCAL Vaccine (Year): 3 Past Surgical History Abdominal Surgery: No AICD: No Genitourinary Surgery: No Pacemaker: No Thoracic Surgery: No Social History Alcohol Use: Yes (DAILY ) Tobacco Use: Yes (PACK A DAY ) Substance Use: No Allergies-Medications (Allergen,Severity, Reaction): Coded Allergies: No Known Allergies (Verified , 01/06/17) Comments No known drug allergies. Reported Meds & Prescriptions Reported Meds & Active Scripts Active Lisinopril 5 Mg Tab 5 Mg PO DAILY Gnp Vitamin B-1 (Thiamine HCl) 100 Mg Tab 100 Mg PO DAILY 30 Days Folic Acid 1 Mg Tablet 1 Mg PO DAILY 30 Days Aspirin EC (Aspirin) 325 Mg Tabdr 325 Mg PO DAILY 30 Days Nifedipine ER 24 HR (Nifedipine) 60 Mg Tab 60 Mg PO DAILY 30 Days Lipitor (Atorvastatin Calcium) 10 Mg Tab 10 Mg PO HS 30 Days Walker with Front Wheels (Device) 1 Mis Mis Ea .ROUTE DIRECTED Narrative Medication List of his home medications reviewed from the nursing note. Review of Systems Except as stated in HPI: all other systems reviewed are Neg Neurologic: Positive: Weakness Physical Exam Narrative GENERAL: Awake, alert, disheveled, no obvious distress SKIN: Focused skin assessment warm/dry. Poor skin hygiene HEAD: Atraumatic. Normocephalic. EYES: Pupils equal and round. No scleral icterus. No injection or drainage. ENT: No nasal bleeding or discharge. Mucous membranes pink and moist. NECK: Trachea midline. No JVD. CARDIOVASCULAR: Regular rate and rhythm. No murmur appreciated. RESPIRATORY: No accessory muscle use. Clear to auscultation. Breath sounds equal bilaterally. GASTROINTESTINAL: Abdomen soft, non-tender, nondistended. Hepatic and splenic margins not palpable. MUSCULOSKELETAL: No obvious deformities. No clubbing. No cyanosis. No edema. NEUROLOGICAL: Awake and alert. No obvious cranial nerve deficits. Right lower extremity weakness, strength of 1 out of 5. Right upper extremity weakness with strength of 4 out of 5. Normal speech. PSYCHIATRIC: Appropriate mood and affect; insight and judgment normal. Data Data Last Documented VS Orders Orders Electrocardiogram (02/12/17 09:00) Prothrombin Time / Inr (Pt) (02/12/17 09:00) Complete Blood Count With Diff (02/12/17:) Basic Metabolic Panel (Bmp) (02/12/17 09:00) Creatine Kinase (Cpk) (02/12/17 09:00) Drug Screen, Random Urine (02/12/17 09:00) Troponin I (02/12/17 09:00) Ct Brain W/O Iv Contrast(Rout) (02/12/17 09:00) Chest, Single Ap (02/12/17 09:00) Ecg Monitoring (02/12/17 09:00) Iv Access Insert/Monitor (02/12/17 09:00) Oximetry (02/12/17 09:00) Sodium Chloride 0.9% Flush (Ns Flush) (02/12/17 09:00) Place In Observation (02/12/17 ) Code Status (02/12/17 12:10) Vital Signs (Adult) Q4H (02/12/17 12:10) Activity Oob With Assistance (02/12/17 12:10) Sodium Chloride 0.9% Flush (Ns Flush) (02/12/17 12:15) Sodium Chloride 0.9% Flush (Ns Flush) (02/12/17 21:00) Acetaminophen (Tylenol) (02/12/17 12:15) Ondansetron Inj (Zofran Inj) (02/12/17 12:15) Case Management Consult (02/12/17 12:10) Scd Bilateral/Knee High JUANA.BID (02/12/17 12:10) Acetaminophen (Tylenol) (02/12/17 12:15) Naloxone Inj (Narcan Inj) (02/12/17 12:15) Magnesium Hydroxide Liq (Milk Of Magnesi (02/12/17 12:15) Nih Stroke Scale - Nihss .On admission and discharge (02/12/17 12:10) Ot Request For Service (02/12/17 12:10) Consult Pt Eval & Treat (02/12/17 12:10) Case Management Consult (02/12/17 ) Activity Bed Rest (02/12/17 12:10) Scd Bilateral/Knee High JUANA.QSHIFT (02/12/17 12:10) Mra Brain W/O Contrast (Cow) (02/12/17 ) Mri Brain W/O Contrast (02/12/17 ) Consulting Sales Executive / Telemetry JUANA.Q8H (02/12/17 12:10) Admit Order (Ed Use Only) (02/12/17 12:16) Labs Laboratory Tests Test 02/12/17 09:05 02/12/17 11:20 White Blood Count 6.9 TH/MM3 Red Blood Count 4.45 MIL/MM3 Hemoglobin 14.4 GM/DL Hematocrit 42.5 % Mean Corpuscular Volume 95.3 FL Mean Corpuscular Hemoglobin 32.3 PG Mean Corpuscular Hemoglobin Concent 33.9 % Red Cell Distribution Width 13.3 % Platelet Count 261 TH/MM3 Mean Platelet Volume 7.9 FL Neutrophils (%) (Auto) 62.6 % Lymphocytes (%) (Auto) 19.2 % Monocytes (%) (Auto) 14.4 % Eosinophils (%) (Auto) 2.5 % Basophils (%) (Auto) 1.3 % Neutrophils # (Auto) 4.3 TH/MM3 Lymphocytes # (Auto) 1.3 TH/MM3 Monocytes # (Auto) 1.0 TH/MM3 Eosinophils # (Auto) 0.2 TH/MM3 Basophils # (Auto) 0.1 TH/MM3 CBC Comment DIFF FINAL Differential Comment Prothrombin Time 9.7 SEC Prothromb Time International Ratio 0.9 RATIO Blood Urea Nitrogen 12 MG/DL Creatinine 0.82 MG/DL Random Glucose 88 MG/DL Calcium Level 8.2 MG/DL Sodium Level 129 MEQ/L Potassium Level 4.0 MEQ/L Chloride Level 100 MEQ/L Carbon Dioxide Level 22.4 MEQ/L Anion Gap 7 MEQ/L Estimat Glomerular Filtration Rate 96 ML/MIN Total Creatine Kinase 184 U/L Troponin I 0.02 NG/ML Urine Opiates Screen NEG Urine Barbiturates Screen NEG Urine Amphetamines Screen NEG Urine Benzodiazepines Screen NEG Urine Cocaine Screen NEG Urine Cannabinoids Screen NEG MDM Medical Decision Making Medical Screen Exam Complete: Yes Emergency Medical Condition: Yes Medical Record Reviewed: Yes Interpretation(s) Twelve-lead EKG was reviewed by me. Normal sinus rhythm, left axis deviation, peaked T waves. Heart rate of 79 bpm. Differential Diagnosis CVA Narrative Course 12:[address] scan does not show any bleed. Blood test results are within acceptable limit except for his sodium which is mildly low and could be from chronic alcoholism. Patient will be given 1 dose of aspirin. I've admitted this patient to the hospitalist. He did not qualify for TPA given the window. The MRA that was done last time showed a tight stenosis at one of the cerebral arteries. Patient will require neurology consult and further MRI and MRA again. He is not a candidate for TPA. Procedures EKG Prior to Arrival: Yes Diagnosis Primary Impression: CVA (cerebral vascular accident) Qualified Codes: I63.9 - Cerebral infarction, unspecified Admitting Information Admitting Physician Requests: Russell Washington MD Feb 12, 2017 08:58
[2017-02-12] MEDS ORDERED: SODIUM CHLORIDE 0.9% FLUSH 10 ML FLUSH IVF PRN (09:00)
[2017-02-12 09:20] LABS: AUTOMATED NEUTROPHIL # 4.3 TH/MM3 (1.8-7.7); BASOPHIL # 0.1 TH/MM3 (0-0.2); BASOPHIL % 1.3 % (0.0-2.0); EOSINOPHIL # 0.2 TH/MM3 (0-0.4); EOSINOPHIL % 2.5 % (0.0-4.0); HEMATOCRIT 42.5 % (39.0-51.0); HEMO FLAGS DIFF FINAL; LYMPH % 19.2 % (9.0-44.0); LYMPHOCYTE # 1.3 TH/MM3 (1.0-4.8); MEAN CELL VOLUME 95.3 FL (80.0-100.0); MEAN CORPUSCULAR HEMOGLOBIN 32.3 PG (27.0-34.0); MEAN CORPUSCULAR HGB CONC 33.9 % (32.0-36.0); MONO % 14.4 % (0.0-8.0); NEUT % 62.6 % (16.0-70.0); PLATELET COUNT 261 TH/MM3 (150-450); RED BLOOD COUNT 4.45 MIL/MM3 (4.50-5.90); RED CELL DISTRIBUTION WIDTH 13.3 % (11.6-17.2); WHITE BLOOD COUNT 6.9 TH/MM3 (4.0-11.0)
[2017-02-12 09:26] LABS: INTERNATIONAL NORMALIZED RATIO 0.9 RATIO; PROTHROMBIN TIME - PATIENT 9.7 SEC (9.8-11.6)
--- NOTE | 2017-02-12 09:34 | EKG ---
Date Performed: 02/12/2017 Time Performed: 08:59:49 PTAGE: 61 years EKG: Sinus rhythm NORMAL ECG No significant change from prior electrocardiogram. DOCTOR: Lalito Sow Interpretating Date/Time 02/12/2017 09:33:35
[2017-02-12 09:36] LABS: BICARBONATE 22.4 MEQ/L (21.0-32.0)
--- NOTE | 2017-02-12 09:49 | RADRPT ---
EXAM DATE/TIME: 02/12/2017 09:12 [facility] COMPARISON: CT BRAIN W/O CONTRAST, January 15, 2017, 14:04. MRI BRAIN W & W/O CONTRAST, January 06, 2017, 18:[address] BRAIN W/O CONTRAST, January 22, 2017, 20:58. INDICATIONS : Evaluate for CVA. Right sided weakness for 2 weeks RADIATION DOSE: 32.39 CTDIvol (mGy) MEDICAL HISTORY : None SURGICAL HISTORY : None. ENCOUNTER: Initial ACUITY: 2 weeks PAIN SCALE: 0/10 LOCATION: cranial TECHNIQUE: Multiple contiguous axial images were obtained of the head. Using automated exposure control and adj ustment of the mA and/or kV according to patient size, radiation dose was kept as low as reasonably a chievable to obtain optimal diagnostic quality images. DICOM format image data is available electro nically for review and comparison. FINDINGS: The ventricles are stable and symmetrically prominent. There are areas of diminished density in the c vandana radiata bilaterally and in the left thalamus and internal capsule consistent with lacunar infar cts. These involvement present previously. There is no evidence of intracranial mass or hemorrhage. T here is nothing to suggest acute infarction. CONCLUSION: No acute cranial findings Ba Turcios MD on February 12, 2017 at 9:42 Board Certified Radiologist. This report was verified electronically.
--- NOTE | 2017-02-12 10:05 | RADRPT ---
EXAM DATE/TIME: 02/12/2017 09:26 [facility] COMPARISON: CHEST SINGLE AP, January 15, 2017, 14:08. INDICATIONS : Right leg and right side weakness. MEDICAL HISTORY : None. SURGICAL HISTORY : None. ENCOUNTER: Initial ACUITY: 1 day PAIN SCORE: 0/10 LOCATION: Right chest FINDINGS: A single view of the chest demonstrates the lungs to be symmetrically aerated without evidence of mas s, infiltrate or effusion. The cardiomediastinal contours are unremarkable. Osseous structures are intact. CONCLUSION: No acute disease. Brayan Gotti Jr., MD on February 12, 2017 at 10:02 Board Certified Radiologist. This report was verified electronically.
[2017-02-12] MEDS ORDERED: ACETAMINOPHEN 325 MG TAB PO PRN ×2 (12:15)
[2017-02-12] MEDS ORDERED: SODIUM CHLORIDE 0.9% FLUSH 10 ML FLUSH IV FLUSH PRN (12:15)
[2017-02-12] MEDS ORDERED: ONDANSETRON HCL 4 MG/2 ML VIAL IVP PRN (12:15)
[2017-02-12] MEDS ORDERED: NALOXONE HCL 0.4 MG/ML AMP IV PUSH PRN (12:15)
[2017-02-12] MEDS ORDERED: MAGNESIUM HYDROXIDE SUSP 30 ML CUP PO PRN (12:15)
[2017-02-12] MEDS ORDERED: ASPIRIN 325 MG TAB PO ONE (13:00)
--- NOTE | 2017-02-12 13:11 | HHI.HP ---
[facility] Primary Care Physician No Primary Care Physician Admission Diagnosis CVA Diagnoses: (1) Hemiparesis (2) Hemiparesis due to cerebrovascular disease (3) Hemiparesis of right dominant side Chief Complaint: Right sided weakness Travel History International Travel<30 Days: No Contact w/Intl Traveler <30 Da: No Traveled to Known Affected Are: No History of Present Illness 61-year-old homeless man with a history of alcohol abuse, recent NM and CVA was brought to the ED by EMS for evaluation of right sided lower extremity weakness as well as RUE. Patient states, yesterday he was walking using his walker he started noticing right lower extremity weakness, however was able to drag himself home. However, at some point overnight he had profound right lower extremity weakness with patient was unable to move his leg. He also noticed some slurring of the speech. He also reports some mild right upper extremity weakness. He was recently diagnosed with lacunar infarct in discharge home on aspirin as well as statin and oral antihypertensive medications. Patient states , he has been unable to take his medicines. He does have a history of alcohol abuse, and drinks an average 2-3 beers a day. He currently denies any GI bleed , shortness of breath or chest pain. Review of Systems Except as stated in HPI: all other systems reviewed are Neg Past Family Social History Past Medical History Hypertension Hyperlipidemia History of alcohol dependence Past Surgical History No previous surgeries Reported Medications Lisinopril 5 Mg Tab 5 Mg PO DAILY Gnp Vitamin B-1 (Thiamine HCl) 100 Mg Tab 100 Mg PO DAILY 30 Days Folic Acid 1 Mg Tablet 1 Mg PO DAILY 30 Days Aspirin EC (Aspirin) 325 Mg Tabdr 325 Mg PO DAILY 30 Days Nifedipine ER 24 HR (Nifedipine) 60 Mg Tab 60 Mg PO DAILY 30 Days Lipitor (Atorvastatin Calcium) 10 Mg Tab 10 Mg PO HS 30 Days Walker with Front Wheels (Device) 1 Mis Mis Ea .ROUTE DIRECTED Allergies: Coded Allergies: No Known Allergies (Verified , 01/06/17) Family History Denies family history of heart disease, CAD, CVA Social History smokes about a pack per day drink 2-3 beers a day denies substance- drug use Physical Exam Vital Signs Vital Signs Date Time Temp Pulse Resp B/P (MAP) Pulse Ox O2 Delivery O2 Flow Rate FiO2 02/12/17 13:01 02/12/17 09:04 (111) Room Air 02/12/17 08:56 98.2 79 23 160/87 (111) 96 Room Air Physical Exam GENERAL: This is a well-nourished, well-developed patient, in no apparent distress. SKIN: No rashes, ecchymoses or lesions. Cool and dry. HEAD: Atraumatic. Normocephalic. No temporal or scalp tenderness. EYES: Pupils equal round and reactive. Extraocular motions intact. No scleral icterus. No injection or drainage. ENT: Nose without bleeding, purulent drainage or septal hematoma. Throat without erythema, tonsillar hypertrophy or exudate. Uvula midline. Airway patent. NECK: Trachea midline. No JVD or lymphadenopathy. Supple, nontender, no meningeal signs. CARDIOVASCULAR: Regular rate and rhythm without murmurs, gallops, or rubs. RESPIRATORY: Clear to auscultation. Breath sounds equal bilaterally. No wheezes , rales, or rhonchi. GASTROINTESTINAL: Abdomen soft, non-tender, nondistended. No hepato-splenomegaly , or palpable masses. No guarding. MUSCULOSKELETAL: Extremities without clubbing, cyanosis, or edema. No joint tenderness, effusion, or edema noted. No calf tenderness. Negative Homans sign bilaterally. NEUROLOGICAL: Awake and alert. Cranial nerves II through XII intact. Motor and sensory grossly within normal limits. 2/5 RLE; 4/5 RUE. Laboratory Laboratory Tests Test 02/12/17 09:05 02/12/17 11:20 White Blood Count 6.9 Red Blood Count 4.45 Hemoglobin 14.4 Hematocrit 42.5 Mean Corpuscular Volume 95.3 Mean Corpuscular Hemoglobin 32.3 Mean Corpuscular Hemoglobin Concent 33.9 Red Cell Distribution Width 13.3 Platelet Count 261 Mean Platelet Volume 7.9 Neutrophils (%) (Auto) 62.6 Lymphocytes (%) (Auto) 19.2 Monocytes (%) (Auto) 14.4 Eosinophils (%) (Auto) 2.5 Basophils (%) (Auto) 1.3 Neutrophils # (Auto) 4.3 Lymphocytes # (Auto) 1.3 Monocytes # (Auto) 1.0 Eosinophils # (Auto) 0.2 Basophils # (Auto) 0.1 CBC Comment DIFF FINAL Differential Comment Prothrombin Time 9.7 Prothromb Time International Ratio 0.9 Blood Urea Nitrogen 12 Creatinine 0.82 Random Glucose 88 Calcium Level 8.2 Sodium Level 129 Potassium Level 4.0 Chloride Level 100 Carbon Dioxide Level 22.4 Anion Gap 7 Estimat Glomerular Filtration Rate 96 Total Creatine Kinase 184 Troponin I 0.02 Urine Opiates Screen NEG Urine Barbiturates Screen NEG Urine Amphetamines Screen NEG Urine Benzodiazepines Screen NEG Urine Cocaine Screen NEG Urine Cannabinoids Screen NEG Result Diagram: 02/12/1790402/12/17904 Imaging Last Impressions Head CT 02/12/17899 Signed Impressions: Service Date/Time: Sunday, February 12, 2017 09:12 - CONCLUSION: No acute cranial findings Ba Turcios MD Chest X-Ray 02/12/17899 Signed Impressions: Service Date/Time: Sunday, February 12, 2017 09:26 - CONCLUSION: No acute disease. Brayan Gotti Jr., MD Caprajeevi VTE Risk Assessment Caprini VTE Risk Assessment: Mod/High Risk (score >= 2) Caprini Risk Assessment Model Point Value = 1 Point Value = 2 Point Value = 3 Point Value = 5 Age 41-60 Minor surgery BMI > 25 kg/m2 Swollen legs Varicose veins or History of unexplained or recurrent spontaneous Oral contraceptives or hormone replacement Sepsis (< 1 month) Serious lung disease, including pneumonia (< 1 month) Abnormal pulmonary function Acute myocardial infarction Congestive heart failure (< 1 month) History of inflammatory bowel disease Medical patient at bed rest Age 61-74 Arthroscopic surgery Major open surgery (> 45 min) Laparoscopic surgery (> 45 min) Malignancy Confined to bed (> 72 hours) Immobilizing plaster cast Central venous access Age >= 75 History of VTE Family history of VTE Factor V Leiden Prothrombin [id number] Lupus anticoagulant Anticardiolipin antibodies Elevated serum homocysteine Heparin-induced thrombocytopenia Other congenital or acquired thrombophilia Stroke (< 1 month) Elective arthroplasty Hip, pelvis, or leg fracture Acute spinal cord injury (< 1 month) Prophylaxis Regimen Total Risk Factor Score Risk Level Prophylaxis Regimen 0-1 Low Early ambulation 2 Moderate Order ONE of the following: *Sequential Compression Device (SCD) *Heparin 5000 units SQ BID 3-4 Higher Order ONE of the following medications: *Heparin 5000 units SQ TID *Enoxaparin/Lovenox 40 mg SQ daily (WT < 150 kg, CrCl > 30 mL/min) *Enoxaparin/Lovenox 30 mg SQ daily (WT < 150 kg, CrCl > 10-29 mL/min) *Enoxaparin/Lovenox 30 mg SQ BID (WT < 150 kg, CrCl > 30 mL/min) AND/OR *Sequential Compression Device (SCD) 5 or more Highest Order ONE of the following medications: *Heparin 5000 units SQ TID (Preferred with Epidurals) *Enoxaparin/Lovenox 40 mg SQ daily (WT < 150 kg, CrCl > 30 mL/min) *Enoxaparin/Lovenox 30 mg SQ daily (WT < 150 kg, CrCl > 10-29 mL/min) *Enoxaparin/Lovenox 30 mg SQ BID (WT < 150 kg, CrCl > 30 mL/min) AND *Sequential Compression Device (SCD) Assessment and Plan Problem List: (1) Hemiparesis ICD Code: G81.90 - Hemiplegia, unspecified affecting unspecified side (2) Hemiparesis due to cerebrovascular disease ICD Code: I67.9 - Cerebrovascular disease, unspecified; G81.90 - Hemiplegia, unspecified affecting unspecified side (3) Hemiparesis of right dominant side ICD Code: G81.91 - Hemiplegia, unspecified affecting right dominant side (4) CVA (cerebral vascular accident) ICD Code: I63.9 - Cerebral infarction, unspecified Status: Acute (5) HTN (hypertension) ICD Code: I10 - Essential (primary) hypertension Assessment and Plan 61-year-old man with Hemiparesis of right dominant side Hemiparesis due to cerebrovascular disease Patient with a recent diagnosis lacunar infarct and will be treated per stroke protocol Head CT noted and review by me with no acute finding -Continue with aspirin and Start Plavix -Start statin therapy -NIHSS, Neuro checks, Monitor on telemetry -PT/OT evaluations -Allow permissive HTN, IV Vasotec and IV labetalol if SBP >220 -Check lipid profile and HgbA1c -Check carotid U/S -Check brain MRI/MRA -Neurology consultation PRN if brain MRI/MRA positive Hypertension Allowed permissive hypertension Tobacco abuse Tobacco counseling cessation provided Nicotine patch Alcohol abuse Alcohol cessation counseling provided Rally pack, CIWA protocol DVT prophylaxis: Bilateral SCDs Code Status Full code Discussed Condition With Patient, ED physician Problem Qualifiers (1) CVA (cerebral vascular accident): Qualified Codes: I63.9 - Cerebral infarction, unspecified Franklyn Guthrie MD Feb 12, 2017 13:11
[2017-02-12] MEDS ORDERED: LORazepam 2 MG/ML VIAL IV PUSH PRN ×8 (13:15→13:45)
[2017-02-12] MEDS ORDERED: FLUMAZENIL 0.5 MG/5 ML VIAL IV PUSH PRN ×2 (13:15→13:31)
[2017-02-12] MEDS ORDERED: LORazepam 2 MG TAB PO PRN ×2 (13:15→13:30)
[2017-02-12] MEDS ORDERED: LORazepam 1 MG TAB PO PRN ×2 (13:15→13:30)
--- NOTE | 2017-02-12 14:14 | RADRPT ---
EXAM DATE/TIME: 02/12/2017 13:02 [facility] COMPARISON: No previous studies available for comparison. INDICATIONS : Right sided weakness. Incontinence. MEDICAL HISTORY : Stroke SURGICAL HISTORY : Orthopaedic. ENCOUNTER: Initial ACUITY: 2 day PAIN SCORE: 0/10 LOCATION: head TECHNIQUE: Multiplanar, multisequence MRI of the brain was performed without contrast. FINDINGS: CEREBRUM: Cortical and central atrophy. However, the ventricles are somewhat prominent out of proportion to the degree of cortical atrophy and some degree of NPH should be considered. Punctate areas of diffusion restriction in the left centrum semiovale and bass radiata characteristic of an acute or subacute w tremayne matter infarct. No mass lesions.. No extraaxial fluid collections are seen. The pituitary glan d and suprasellar cistern are normal in configuration. WHITE MATTER: Periventricular and scattered deep white matter areas of increased T2 flair signal intensity characte ristic of moderately severe small vessel ischemic demyelination. POSTERIOR FOSSA: The cerebellum and brainstem are intact. The 4th ventricle is midline. The cerebellopontine angle is unremarkable. The cerebellar tonsils are normal in position. DIFFUSION IMAGING: Focal areas of diffusion restriction in the left bass radiata and centrum semiovale characteristic of small white matter infarcts. EXTRACRANIAL: The visualized portions of the orbits and paranasal sinuses are unremarkable. CONCLUSION: 1. Acute or subacute lacunar type infarcts in the left bass radiata and centrum semiovale. This may explain current clinical symptoms. 2. Findings are superimposed on baseline cortical and central atrophy. Again, the ventricles are some what prominent compared to degree of cortical atrophy an element of NPH may be considered [facility]. Yandel Storm MD on February 12, 2017 at 14:07 Board Certified Radiologist. This report was verified electronically.
--- NOTE | 2017-02-12 14:18 | RADRPT ---
EXAM DATE/TIME: 02/12/2017 13:02 [facility] COMPARISON: No previous studies available for comparison. INDICATIONS : Right sided weakness. MEDICAL HISTORY : Stroke SURGICAL HISTORY : Ortho. ENCOUNTER: Initial ACUITY: 1 day PAIN SCORE: 0/10 LOCATION: head Please note a normal MRA of the brain does not entirely exclude the possibility of a small aneurysm, nor the possibility of distal intracranial vessel disease. TECHNIQUE: 3D time of flight MRA was performed. Source images, multiplanar STS MIP, and 3D volume MIP reconstru ctions were reviewed. FINDINGS: There is focal significant stenotic narrowing involving the left middle cerebral artery distal to the anterior sylvian branch and proximal to the bifurcation. Contralateral right MCA is unremarkable. Th e anterior cerebral vessels are unremarkable. There is mild atherosclerotic irregularity of the poste rior cerebral vessels with apparent stenosis involving the lateral genu of the left HOME VISITS NURSE. There is no evidence of aneurysm or vascular malformation. No major vessel occlusion is appreciated. CONCLUSION: Findings of patchy intrinsic atherosclerotic cerebrovascular disease including what appears to be a s ignificant stenosis involving the left MCA and possible stenosis involving the left HOME VISITS NURSE. Ba Turcios MD on February 12, 2017 at 13:52 Board Certified Radiologist. This report was verified electronically.
[2017-02-12] MEDS: ATORVASTATIN 10 MG TAB PO SCH (23:05)
[2017-02-12] MEDS: SODIUM CHLORIDE 0.9% FLUSH 10 ML FLUSH IV FLUSH SCH (23:05)
[2017-02-13] VITALS (12 sets, daily range): BP systolic 146–198; BP diastolic 97–114; PULSE 67–93; RESP 18; TEMP 97.7–98.9; O2SAT 96–98
[2017-02-13] MEDS ORDERED: NICOTINE 21 MG/24 HR PATCH T-DERMAL SCH (09:00)
[2017-02-13] MEDS ORDERED: REMOVE OLD PATCH T-DERMAL SCH (09:00)
[2017-02-13] MEDS ORDERED: THIAMINE HCL 100 MG TAB PO SCH (09:00)
[2017-02-13] MEDS: CLOPIDOGREL 75 MG TAB PO SCH (09:26)
[2017-02-13] MEDS: ASPIRIN 325 MG TAB PO SCH (09:26)
[2017-02-13] MEDS: THIAMINE HCL 100 MG TAB PO SCH (09:27)
[2017-02-13] MEDS: SODIUM CHLORIDE 0.9% FLUSH 10 ML FLUSH IV FLUSH SCH ×2 (09:27→21:00)
--- NOTE | 2017-02-13 09:28 | HHI.PR ---
Subjective Remarks Follow up on patient with right sided weakness. Patient seen and examined. Patient denies any dizziness, headache or vision changes. States he was unable to get his medications filled secondary to cost following his last discharge 01/23/17. Reports worsening right lower extremity weakness. Denies any fever or chills. Denies any chest pain or shortness of breath. Denies any nausea, vomiting or abdominal pain. He is upset his cereal is getting soggy while I examine him. Objective Vitals Vital Signs Date Time Temp Pulse Resp B/P (MAP) Pulse Ox O2 Delivery O2 Flow Rate FiO2 02/13/17 07:39 98.9 92 18 156/101 (119) 97 02/13/17 05:38 191/112 (138) 02/13/17 04:17 75 02/13/17 04:06 98.0 75 18 189/113 (138) 96 02/13/17 00:12 98.2 67 18 185/97 (126) 98 02/13/17 00:05 67 02/12/17 22:10 98.1 62 18 188/95 (126) 97 02/12/17 20:01 91 02/12/17 15:52 94 02/12/17 15:36 98.1 98 18 184/97 (126) 98 02/12/17 14:51 81 02/12/17 13:52 98.6 80 18 176/103 (127) 97 02/12/17 13:01 I/O 02/12/17 02/12/17 02/12/17 02/13/17 02/13/17 02/13/17 07:00 15:00 23:00 07:00 15:00 23:00 Output Total 125 ml 550 ml Balance -125 ml -550 ml Output Urine Total 125 ml 550 ml # Voids 1 Result Diagram: 02/12/1790402/12/17904 Imaging Last Impressions Head CT 02/12/17899 Signed Impressions: Service Date/Time: Sunday, February 12, 2017 09:12 - CONCLUSION: No acute cranial findings Ba Turcios MD Chest X-Ray 02/12/17 09 Signed Impressions: Service Date/Time: Sunday, February 12, 2017 09:26 - CONCLUSION: No acute disease. Brayan Gotti Jr., MD Head Magnetic Resonance Angiography 02/12/17 0000 Signed Impressions: Service Date/Time: Sunday, February 12, 2017 13:02 - CONCLUSION: Findings of patchy intrinsic atherosclerotic cerebrovascular disease including what appears to be a significant stenosis involving the left MCA and possible stenosis involving the left BARREL RIFLER. Ba Turcios MD Brain MRI 02/12/17 0000 Signed Impressions: Service Date/Time: Sunday, February 12, 2017 13:02 - CONCLUSION: 1. Acute or subacute lacunar type infarcts in the left bass radiata and centrum semiovale. This may explain current clinical symptoms. 2. Findings are superimposed on baseline cortical and central atrophy. Again, the ventricles are somewhat prominent compared to degree of cortical atrophy an element of NPH may be considered in the appropriate clinical setting. Yandel Storm MD Objective Remarks GENERAL: This is a unkempt, disheveled well-nourished, well-developed male patient, in no apparent distress. Awake and alert. SKIN: Cool and dry. HEAD: Atraumatic. Normocephalic. EYES: Extraocular motions intact. No scleral icterus. No injection or drainage. ENT: Nose without bleeding or purulent drainage. Airway patent. MMM. NECK: Trachea midline. CARDIOVASCULAR: Regular rate and rhythm without murmurs, gallops, or rubs. RESPIRATORY: Nonlabored. Clear to auscultation. Breath sounds equal bilaterally. No wheezes, rales, or rhonchi. GASTROINTESTINAL: Abdomen soft, non-tender, nondistended. No hepato-splenomegaly , or palpable masses. No guarding. MUSCULOSKELETAL: Extremities without clubbing, cyanosis, or edema. No joint tenderness, effusion, or edema noted. No calf tenderness. NEUROLOGICAL: Awake and alert. Able to move all extremities spontaneously except RLE, 2/5 RLE; 4+/5 RUE. Motor and sensory grossly intact LUE and LLE. Normal speech. Medications and IVs Current Medications Medications (Trade) Dose Ordered Sig/Luis M Route Start Time Stop Time Status Last Admin (NS Flush) 2 ml UNSCH PRN IV FLUSH 02/12/17 12:15 (NS Flush) 2 ml BID IV FLUSH 02/12/17 21:00 02/12/17 23:05 (Tylenol) 650 mg Q4H PRN PO 02/12/17 12:15 (Zofran Inj) 4 mg Q6H PRN IVP 02/12/17 12:15 (Tylenol) 650 mg Q6H PRN PO 02/12/17 12:15 (Narcan Inj) 0.4 mg UNSCH PRN IV PUSH 02/12/17 12:15 (Milk Of Magnesia Liq) 30 ml Q12H PRN PO 02/12/17 12:15 (Romazicon Inj) 0.2 mg Q1M PRN IV PUSH 02/12/17 13:31 (Ativan) 1 mg Q4H PRN PO 02/12/17 13:30 (Ativan Inj) 1 mg Q4H PRN IV PUSH 02/12/17 13:30 (Ativan) 2 mg Q2H PRN PO 02/12/17 13:30 (Ativan Inj) 2 mg Q2H PRN IV PUSH 02/12/17 13:30 (Ativan Inj) 2 mg Q1H PRN IV PUSH 02/12/17 13:30 (Ativan Inj) 2 mg Q15M PRN IV PUSH 02/12/17 13:45 (Vitamin B1) 100 mg DAILY PO 02/13/17 09:00 (Habitrol 21 Mg Patch.24 Hr) 1 patch DAILY T-DERMAL 02/13/17 09:00 Miscellaneous Information 1 DAILY T-DERMAL 02/13/17 09:00 (Vasotec Inj) 1.25 mg Q4H PRN IV PUSH 02/12/17 14:30 (Aspirin) 325 mg DAILY PO 02/13/17 09:00 (Lipitor) 10 mg HS PO 02/12/17 21:00 02/12/17 23:05 (Plavix) 75 mg DAILY PO 02/13/17 09:00 A/P Problem List: (1) Hemiparesis ICD Code: G81.90 - Hemiplegia, unspecified affecting unspecified side (2) Hemiparesis due to cerebrovascular disease ICD Code: I67.9 - Cerebrovascular disease, unspecified; G81.90 - Hemiplegia, unspecified affecting unspecified side (3) Hemiparesis of right dominant side ICD Code: G81.91 - Hemiplegia, unspecified affecting right dominant side (4) CVA (cerebral vascular accident) ICD Code: I63.9 - Cerebral infarction, unspecified Status: Acute (5) HTN (hypertension) ICD Code: I10 - Essential (primary) hypertension Assessment and Plan 61-year-old homeless man with recent CVA, residual right sided weakness with medication noncompliance secondary to financial issues. Hemiparesis of right dominant side Hemiparesis due to cerebrovascular disease Recent left CVA 12/31 Medication noncompliance - patient not on any medications Patient with a recent diagnosis lacunar infarct and will be treated per stroke protocol Head CT noted and review by me with no acute finding -Brain MRI shows acute or subacute lacunar type infarct in the left bass radiata and centrum semiovale -MRA shows patchy intrinsic atherosclerotic cerebral vascular disease with significant stenosis involving the left MCA and possible stenosis involving left BARREL RIFLER. -Neurology consulted, appreciate assistance/recommendations. -Continue with aspirin and Plavix -Continue statin therapy -NIHSS, Neuro checks, Monitor on telemetry -PT/OT evaluations -Allow permissive HTN -HgbA1c 5.3 01/07/17 -LDL 124 01/07/17 Hyponatremia -asymptomatic -IVF -monitor sodium level - today's lab pending Hypertension -Allow permissive hypertension -IV Vasotec and IV labetalol if SBP >220 Tobacco abuse -Tobacco counseling cessation provided -Nicotine patch discontinued secondary to MRA stenoses Alcohol abuse -Alcohol cessation counseling provided -[facility] protocol -Thiamine/Folic acid/MVI daily DVT prophylaxis: Bilateral SCDs Problem Qualifiers (1) CVA (cerebral vascular accident): Qualified Codes: I63.9 - Cerebral infarction, unspecified Shobha Lemon Feb 13, 2017 09:28
[2017-02-13] MEDS ORDERED: MULTIVITAMIN TAB PO ONE (09:30)
[2017-02-13] MEDS ORDERED: FOLIC ACID 1 MG TAB PO ONE (09:30)
[2017-02-13] MEDS: SODIUM CHLOR 0.9% 1000 ML INJ 1,000 ML IV SCH ×2 (09:48→21:00)
--- NOTE | 2017-02-13 10:08 | MB ---
cc: EBER RYAN DATE OF CONSULTATION 02/13/2017 REASON FOR CONSULTATION This is a 61-year-old right-handed man with a history of hypertension. He tells me he had a stroke three weeks ago. He has not been taking an aspirin a day since. I actually saw him on January 06. He was a 61-year-old man, a smoker suddenly had weakness on the right side, came into the hospital, says he just had two beers a day at that time. 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 He had a left periventricular infarct, small, slight hyperintensity subcortical region on the left posterior MCA also. She had significant atrophy and some generous ventricles. Carotid ultrasound was negative. Echocardiogram showed a normal ejection fraction, mild aortic dilation, left atrial size was normal. Mitral valve, aortic valve were normal. He had a small infarct at that time. I had him rated for strength right triceps 4/5, finger extensors 5-/5, right lower extremity 4+/5. We will put him on an aspirin. MRA of the neck was normal. 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 He was on a statin with the LDL being increased. His troponin was initially increased. He went back to live on the [place]. He was actually up and in the shower and doing fairly well. He says that three days ago, his strength suddenly got weaker in the right leg and thus came in the hospital. Although yesterday, told the ER it just started yesterday. MEDICATIONS 1. Lisinopril 2. Thiamine 3. Folic acid 4. 325 of Aspirin 5. Nifedipine 6. Lipitor, however, it is unclear to me if he has actually been taking them or not. ALLERGIES NO KNOWN DRUG ALLERGIES. REVIEW OF SYSTEMS He denied any diabetes or hypercholesterolemia that he knew about, but he did have some the last time. He denies any ME, chest pain, palpitation, headache, A. fib, Coumadin, CABG, stent angioplasty, renal, hepatic or pulmonary disease, thyroid disease lupus, ulcer, cancer or seizure. SOCIAL HISTORY He is a drinker and a smoker living on the street. FAMILY HISTORY Negative for cancer, seizure, or stroke according to the patient. PHYSICAL EXAM On exam, blood pressure 160/87 as high as 191/112. NECK: There are no carotid bruits. HEART: Regular rhythm. I did not detect a murmur. NEUROLOGIC: Pupils are equal. Visual roberts are full. Extraocular intact without nystagmus. Face moves symmetrically. Tongue was midline. He does have a drift on the right side. Tricep best testing a 5-/5. Finger extensors, 5-/5. Left upper and lower extremity strength normal. Right lower extremity is weak there about 4/5 in the iliopsoas at 4-/5. He would not let me check the bottom of his feet, but his tibialis anterior was 5-/5 on the right and 5/5 on the left. DTRs are trace throughout. The toes, he would not let me check. Pinprick appeared to be intact throughout. LABORATORY DATA CBC is normal. Sed rate last admission was normal. RPR, ARIADNA negative. Urine drug screen has been negative. Alcohol level initially was 227 on January 22. UA has been negative in the recent past. Basic metabolic profile, sodium is only 129, but it has been somewhat low in the past in December and January. His basic metabolic profile otherwise is normal. His troponin in December went from 0.18-0.45 and then came back down again. This time, it is normal. LFTs last admission were normal. CPK and troponin this admission normal. LDL was 121 on the last admission. Thiamine and was normal. Methylmalonic acid normal. Thyroid normal. Serum protein electrophoresis did not show any monoclonal gammopathy. Sed rate was normal as noted. CRP was slightly elevated at 1.2 on the last admission. He had a chest x-ray on this admission that was negative. EKG shows sinus rhythm. CT scan of the brain was read as nothing acute. MRI of the brain the last time showed an acute infarct. MRA of the neck was negative. GFR is 53 on this admission and was 88 in December. He came back in on January 22. MRI of the brain now shows a few small subcortical infarcts in the left MCA territory and a resolving left deeper infarct. His MRI of the brain on January 06 showed a lacunar type infarct, periventricular, but no cortically based infarct so there is a change between the January 06 MRI and the one done yesterday on February 12. There is a now extension into the cortex. His MRA of the head was questionable, some the left MCA disease, the last time I thought probably not significant. A little bit of decreased signal, but not any skipped lesion or occlusion on January 08 and now he appears to have somewhat of a skipped area, two of them, in the left MCA and it is unclear if that could be clot or a worsening stenosis. His MRA of the neck on the last admission was negative. PAST MEDICAL HISTORY He was admitted briefly on 01/22 for stumbling and falling and it was after his stroke also. An MRI was not done at that time. He had an MRI of the brain done yesterday that was read as acute infarct. He had an echocardiogram on the last admission with a EF of 50-55%, mild aortic dilation, left atrial size was normal. The valves were normal. He had a Holter monitor done at that time that showed sinus rhythm. He had a nonsustained SVT. No A. Fib or A. flutter was noted. IMPRESSION Extension of that the left hemisphere infarct now cortically based. I want to a CTA to get a better look at that left middle cerebral artery. He has been put on Plavix which will be fine for now. We will give him IV hydration, but overall for the most part, if he does have an intrinsic left MCA lesion, I would more recommend Coumadin as I have had a lot of anti-platelet failures for these type of patients. There was a large study that looked at intracranial stenosis and they recommended medical therapy over stenting and there was a study comparing aspirin versus Coumadin and the study overall recommended no different between the two, but if you looked at the patient's they kept their INR therapeutic, the Coumadin patients did better than the aspirin patients, so usually I treat these patients with Coumadin. However, I am wondering, he is probably not a good Coumadin candidate if he is going to live on the street. If he can get a alf permanent residency, then they could give him his Coumadin there. This would have to be worked out between the patient and manager social media. Also, I am confident he will continue to take Plavix even on the street if he just lives on the street. So he is at a high risk for more strokes in the future. There were some supraventricular arrhythmias on the Holter. We will monitor here in the hospital and make sure he does not have any A. fib and depending on what the CTA looks like, we could consider anticoagulation in case he does have some occult that we are missing The fact that he had an elevated troponin last time, I will have to defer to the med team whether he should not have cardiology see him. MD EULALIO Uriarte/PRASANNA /8:53 AM /9:26 AM
[2017-02-13 12:11] LABS: BICARBONATE 26.4 MEQ/L (21.0-32.0); POTASSIUM 4.3 MEQ/L (3.5-5.1)
[2017-02-13 12:32] LABS: HDL CHOLESTEROL 45.8 MG/DL (40.0-60.0)
[2017-02-13] MEDS ORDERED: IOHEXOL 350 MG/ML 10 ML VIAL (for RAD DIAG) IVCONTRAST ONE (12:48)
--- NOTE | 2017-02-13 14:03 | RADRPT ---
EXAM DATE/TIME: 02/13/2017 12:35 [facility] COMPARISON: No previous studies available for comparison. INDICATIONS : Right side weakness; evaluate for left middle cerebral artery stenosis. IV CONTRAST: 80 cc Omnipaque 350 (iohexol) IV ; Cumulative dose for multiple exams. RADIATION DOSE: 14.78 CTDIvol (mGy) ; Combined studies MEDICAL HISTORY : Stroke. Cardiovascular disease Hypertension. SURGICAL HISTORY : None. ENCOUNTER: Initial ACUITY: 2 days PAIN SCALE: 0/10 LOCATION: cranial TECHNIQUE: Volumetric scanning was performed using a multi-row detector CT scanner. The data was post processed with a variety of visualization algorithms including full volume maximum intensity projection, multi -planar sliding thin slab reformation, curved planar reformation, and surface rendering techniques. Using automated exposure control and adjustment of the mA and/or kV according to patient size, radiat ion dose was kept as low as reasonably achievable to obtain optimal diagnostic quality images. DICO M format image data is available electronically for review and comparison. FINDINGS: There is excellent visualization of the major intracranial arteries out to the second-order branch ve ssels. Diffuse atherosclerotic disease is seen throughout the visualized intracranial vessels. Numer ous areas of mild luminal narrowing seen involving the anterior and posterior circulation. Note is ma de of a high grade stenosis involving the peripheral P2 segment the left. There is a long segment mod erate stenosis involving the middle portion of the left M1. The stenosis is 50-60% in nature and span s for approximately 8 mm. No aneurysms. No arterial venous malformations. CONCLUSION: Diffuse atherosclerotic disease with a hemodynamically significant stenosis involving the left M1 seg ment and left P2 segment. Brayan Gotti Jr., MD on February 13, 2017 at 13:58 Board Certified Radiologist. This report was verified electronically.
--- NOTE | 2017-02-13 14:16 | RADRPT ---
EXAM DATE/TIME: 02/13/2017 12:35 [facility] COMPARISON: No previous studies available for comparison. INDICATIONS : Right side weakness; evaluate for left middle cerebral artery stenosis. IV CONTRAST: 80 cc Omnipaque 350 (iohexol) IV ; Cumulative dose for multiple exams. RADIATION DOSE: 14.78 CTDIvol (mGy) ; Combined studies MEDICAL HISTORY : Stroke. Cardiovascular disease Hypertension. SURGICAL HISTORY : None. ENCOUNTER: Initial ACUITY: 2 days PAIN SCALE: 0/10 LOCATION: neck Elevated flow velocities and ICA/CCA ratios have been found to correlate with increased degrees of vessel stenosis, calculated as percentage of diameter relative to a normal segment of distal ICA/CCA. TECHNIQUE: Volumetric scanning was performed using a multirow detector CT scanner. The data was post processed with a variety of visualization algorithms including full-volume maximum intensity projection, multip lanar sliding thin-slab reformation, curved-planar reformation, and surface-rendering techniques. Us ing automated exposure control and adjustment of the mA and/or kV according to patient size, radiatio n dose was kept as low as reasonably achievable to obtain optimal diagnostic quality images. DICOM f ormat image data is available electronically for review and comparison. FINDINGS: AORTIC ARCH: There is a three-vessel origin of the great vessels from the aorta. No evidence of ostial narrowing. RIGHT CAROTID: Calcified plaque involving the cephalad portion of the bulb and proximal ICA. No luminal narrowing ut ilizing NASCET criteria. No ulceration. The more cephalad portion of the extracranial ICA, ECA, and C CA are patent. LEFT CAROTID: Noncalcified atheromatous plaque is seen involving the mid common carotid artery generating a 10% lum enal narrowing without ulceration. Calcified plaque is seen involving the cephalad portion of the car otid bulb. No luminal narrowing utilizing NASCET criteria. No ulceration. More cephalad portion of th e extracranial ICA, ECA, and CCA are patent. VERTEBRALS: The vertebral arteries have a symmetric diameter. No stenotic lesions are seen. CONCLUSION: Atherosclerotic plaque without luminal narrowing. Brayan Gotti Jr., MD on February 13, 2017 at 14:08 Board Certified Radiologist. This report was verified electronically.
[2017-02-13] MEDS: ATORVASTATIN 10 MG TAB PO SCH (21:00)
[2017-02-14] VITALS (8 sets, daily range): BP systolic 146–194; BP diastolic 89–116; PULSE 70–80; RESP 18–20; TEMP 97.1–98.1; O2SAT 96–98
[2017-02-14] MEDS: SODIUM CHLOR 0.9% 1000 ML INJ 1,000 ML IV SCH (05:11)
[2017-02-14 07:46] LABS: BICARBONATE 23.9 MEQ/L (21.0-32.0); POTASSIUM 3.8 MEQ/L (3.5-5.1)
[2017-02-14] MEDS: ASPIRIN 325 MG TAB PO SCH (08:01)
[2017-02-14] MEDS: MULTIVITAMIN TAB PO SCH (08:01)
[2017-02-14] MEDS: THIAMINE HCL 100 MG TAB PO SCH (08:01)
[2017-02-14] MEDS: FOLIC ACID 1 MG TAB PO SCH (08:01)
[2017-02-14] MEDS: CLOPIDOGREL 75 MG TAB PO SCH (08:02)
[2017-02-14] MEDS: SODIUM CHLORIDE 0.9% FLUSH 10 ML FLUSH IV FLUSH SCH ×2 (09:00→21:00)
--- NOTE | 2017-02-14 11:06 | HHI.PR ---
Subjective Remarks Patient reports mild improvement in RLE weakness. RUE is about the same. DW RN. He has not been complaint with staying in bed flat. Objective Vitals Vital Signs Date Time Temp Pulse Resp B/P (MAP) Pulse Ox O2 Delivery O2 Flow Rate FiO2 02/14/17 09:39 70 02/14/17 08:30 97.6 75 20 183/116 (138) 97 02/14/17 06:00 97.6 80 18 146/89 (108) 96 02/14/17 00:22 98.1 79 18 194/103 (133) 96 02/13/17 23:00 76 02/13/17 20:57 97.7 77 18 146/114 (125) 96 02/13/17 15:44 98.7 78 18 198/101 (133) 98 02/13/17 15:21 93 02/13/17 11:48 97.9 80 18 188/105 (132) 97 I/O 02/13/17 02/13/17 02/13/17 02/14/17 02/14/17 02/14/17 07:00 15:00 23:00 07:00 15:00 23:00 Intake Total 500 ml Output Total 550 ml Balance -550 ml 500 ml Intake Oral 500 ml Output Urine Total 550 ml # Voids 2 Result Diagram: 02/12/1790402/14/17 0611 Imaging Last Impressions Neck CTA 02/13/17 0911 Signed Impressions: Service Date/Time: January 12:35 - CONCLUSION: Atherosclerotic plaque without luminal narrowing. Brayan Gotti Jr., MD Head CTA 02/13/17 09 Signed Impressions: Service Date/Time: January 12:35 - CONCLUSION: Diffuse atherosclerotic disease with a hemodynamically significant stenosis involving the left M1 segment and left P2 segment. Brayan Gotti Jr., MD Head CT 02/12/17 09 Signed Impressions: Service Date/Time: Sunday, February 12, 2017 09:12 - CONCLUSION: No acute cranial findings Ba Turcios MD Chest X-Ray 02/12/17 09 Signed Impressions: Service Date/Time: Sunday, February 12, 2017 09:26 - CONCLUSION: No acute disease. Brayan Gotti Jr., MD Head Magnetic Resonance Angiography 02/12/17 0000 Signed Impressions: Service Date/Time: Sunday, February 12, 2017 13:02 - CONCLUSION: Findings of patchy intrinsic atherosclerotic cerebrovascular disease including what appears to be a significant stenosis involving the left MCA and possible stenosis involving the left MED CARE MANAGER. Ba Turcios MD Brain MRI 02/12/17 0000 Signed Impressions: Service Date/Time: Sunday, February 12, 2017 13:02 - CONCLUSION: 1. Acute or subacute lacunar type infarcts in the left bass radiata and centrum semiovale. This may explain current clinical symptoms. 2. Findings are superimposed on baseline cortical and central atrophy. Again, the ventricles are somewhat prominent compared to degree of cortical atrophy an element of NPH may be considered in the appropriate clinical setting. Yandel Storm MD Objective Remarks GENERAL: This is a well-nourished, well-developed patient, in no apparent distress. CARDIOVASCULAR: Normal rate and regular rhythm without murmurs, gallops, or rubs. RESPIRATORY: Good respiratory efforts. Breath sounds equal and clear to auscultation bilaterally. GASTROINTESTINAL: Abdomen soft, non-tender, non-distended. Normal active bowel sounds MUSCULOSKELETAL: Extremities without cyanosis, or edema. NEURO: Alert & Oriented x4 to person, place, time, situation. Right hand lower extremity strength is 3 out of 5. Left sided has normal strength. PSYCH: Appropriate mood and affect. 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 Patient had residual right sided weakness. He was started on aspirin but never filled the prescription because he states he could not afford the medications. He continues to drink alcohol daily. Patient readmitted again with what appear to be progression of the left hemispheric infarct. He has had worsening hemiparesis on the right. 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 Medication noncompliance - patient not on any medications - Appreciate neurology following. The patient was started on Plavix and aspirin. Continue statin. Telemetry reviewed since his arrival. No arrhythmia noted. Patient's biggest barriers to get better are his noncompliance and homelessness. He does not have any insurance benefit for SNF placement. He is certainly at risk for more strokes. - Patient was counseled on the need to be compliant with treatment during the hospitalization and outpatient. - Neurology was considering Coumadin. However I also agree that he is a good candidate given the reason stated above. - Daily PT Hyponatremia: Chronic, likely secondary to alcohol abuse. Asymptomatic. - Monitor Hypertension: Has been untreated based on review of his records. -Start lisinopril Tobacco abuse -Tobacco counseling cessation provided Alcohol abuse -Alcohol cessation counseling provided -[facility] protocol -Thiamine/Folic acid/MVI daily DVT prophylaxis: Bilateral SCDs Discharge Planning Discussed with case management. Patient has no benefit for SNF. Continue rehabilitation efforts year. He may need to return to his previous living arrangements. Problem Qualifiers (1) CVA (cerebral vascular accident): Qualified Codes: I63.9 - Cerebral infarction, unspecified Sangeetha Zayas MD Feb 14, 2017 11:06
--- NOTE | 2017-02-14 13:52 | PD.PN.STU ---
Subjective Remarks Patient states that his weakness is moderately improved in the right leg. No reported change in weakness in R upper extremity. Per nurse, patient is reportedly noncompliant with flat head of bed and has also thrown things in room. D/w case management and patient not a candidate for SNF although CM will discuss w/ pt options for assistance in receiving meds outpatient. Objective Vitals Vital Signs Date Time Temp Pulse Resp B/P (MAP) Pulse Ox O2 Delivery O2 Flow Rate FiO2 02/14/17 11:50 97.3 79 20 175/93 (120) 96 02/14/17 09:39 70 02/14/17 08:30 97.6 75 20 183/116 (138) 97 02/14/17 06:00 97.6 80 18 146/89 (108) 96 02/14/17 00:22 98.1 79 18 194/103 (133) 96 02/13/17 23:00 76 02/13/17 20:57 97.7 77 18 146/114 (125) 96 02/13/17 15:44 98.7 78 18 198/101 (133) 98 02/13/17 15:21 93 I/O 02/13/17 02/13/17 02/13/17 02/14/17 02/14/17 02/14/17 07:00 15:00 23:00 07:00 15:00 23:00 Intake Total 500 ml Output Total 550 ml Balance -550 ml 500 ml Intake Oral 500 ml Output Urine Total 550 ml # Voids 2 Result Diagram: 02/12/17 0905 02/14/17 0611 Objective Remarks GENERAL: Patient awake, sitting up in bed in no apparent distress. Had spilled breakfast on floor. SKIN: Warm and dry. HEAD: Atraumatic. Normocephalic. EYES: Pupils equal and round. No scleral icterus. No injection or drainage. ENT: No nasal bleeding or discharge. Mucous membranes pink and moist. NECK: Trachea midline. No JVD. CARDIOVASCULAR: Regular rate and rhythm. RESPIRATORY: No accessory muscle use. Clear to auscultation. Breath sounds equal bilaterally. GASTROINTESTINAL: Abdomen soft, non-tender, nondistended. Hepatic and splenic margins not palpable. MUSCULOSKELETAL: Extremities without clubbing, cyanosis, or edema. No obvious deformities. NEUROLOGICAL: Awake and alert. No obvious cranial nerve deficits. Left extremities 5/5 strength. 4/5 strength in R LE, actively lifts off bed several inches but unable to move against resistance. 4/5 netsuite developer strength in R UE. PSYCHIATRIC: Appropriate mood and affect; insight and judgment normal. Medications and IVs Current Medications Sodium Chloride (NS Flush) 2 ml UNSCH PRN IVF FLUSH AFTER USING IV ACCESS; Start 02/12/17 at 09:00; Stop 02/12/17 at 12:34; Status DC Sodium Chloride (NS Flush) 2 ml UNSCH PRN IV FLUSH FLUSH AFTER USING IV ACCESS ; Start 02/12/17 at 12:15 Sodium Chloride (NS Flush) 2 ml BID IV FLUSH Last administered on 02/13/17 09 :27; Start 02/12/17 at 21:00 Acetaminophen (Tylenol) 650 mg Q4H PRN PO TEMP > 100.4; Start 02/12/17 at 12: 15 Ondansetron HCl (Zofran Inj) 4 mg Q6H PRN IVP NAUSEA OR VOMITING; Start at 12:15 Acetaminophen (Tylenol) 650 mg Q6H PRN PO PAIN SCALE 1 TO 2; Start 02/12/17 at 12:15 Naloxone HCl (Narcan Inj) 0.4 mg UNSCH PRN IV PUSH SEE LABEL COMMENTS; Start 02/12/17 at 12:15 Magnesium Hydroxide (Milk Of Magnesia Liq) 30 ml Q12H PRN PO Mild constipation ; Start 02/12/17 at 12:15 Aspirin (Aspirin) 325 mg ONCE ONCE PO Last administered on 02/12/17t 14:25; Start 02/12/17 at 13:00; Stop 02/12/17 at 13:01; Status DC Flumazenil (Romazicon Inj) 0.2 mg Q1M PRN IV PUSH SEE LABEL COMMENTS; Start at 13:15; Stop 02/12/17 at 13:15; Status DC Lorazepam (Ativan) 1 mg Q4H PRN PO CIWA 8 - 10; Start 02/12/17 at 13:15; Stop 02/12/17 at 13:15; Status DC Lorazepam (Ativan Inj) 1 mg Q4H PRN IV PUSH CIWA 8 - 10; Start 02/12/17 at 13: 15; Stop 02/12/17 at 13:15; Status DC Lorazepam (Ativan) 2 mg Q2H PRN PO CIWA 11-14; Start 02/12/17 at 13:15; Stop 02/12/17 at 13:15; Status DC Lorazepam (Ativan Inj) 2 mg Q2H PRN IV PUSH CIWA 11-14; Start 02/12/17 at 13: 15; Stop 02/12/17 at 13:15; Status DC Lorazepam (Ativan Inj) 2 mg Q1H PRN IV PUSH CIWA 15-20; Start 02/12/17 at 13: 15; Stop 02/12/17 at 13:15; Status DC Lorazepam (Ativan Inj) 2 mg Q15M PRN IV PUSH CIWA > 20; Start 02/12/17 at 13: 15; Stop 02/12/17 at 13:15; Status DC Thiamine HCl (Vitamin B1) 100 mg DAILY PO ; Start 02/13/17 at 09:00; Stop at 09:00; Status DC Flumazenil (Romazicon Inj) 0.2 mg Q1M PRN IV PUSH SEE LABEL COMMENTS; Start at 13:31 Lorazepam (Ativan) 1 mg Q4H PRN PO CIWA 8 - 10; Start 02/12/17 at 13:30 Lorazepam (Ativan Inj) 1 mg Q4H PRN IV PUSH CIWA 8 - 10; Start 02/12/17 at 13: 30 Lorazepam (Ativan) 2 mg Q2H PRN PO CIWA 11-14; Start 02/12/17 at 13:30 Lorazepam (Ativan Inj) 2 mg Q2H PRN IV PUSH CIWA 11-14; Start 02/12/17 at 13: 30 Lorazepam (Ativan Inj) 2 mg Q1H PRN IV PUSH CIWA 15-20; Start 02/12/17 at 13: 30 Lorazepam (Ativan Inj) 2 mg Q15M PRN IV PUSH CIWA > 20; Start 02/12/17 at 13: 45 Thiamine HCl (Vitamin B1) 100 mg DAILY PO Last administered on 02/14/17 08:01 ; Start 02/13/17 at 09:00 Nicotine (Habitrol 21 Mg Patch.24 Hr) 1 patch DAILY T-DERMAL Last administered on 02/13/17 09:27; Start 02/13/17 at 09:00; Stop 02/13/17 at 09:57; Status DC Miscellaneous Information 1 DAILY T-DERMAL Last administered on 02/13/17 09: 38; Start 02/13/17 at 09:00; Stop 02/13/17 at 09:57; Status DC Enalaprilat (Vasotec Inj) 1.25 mg Q4H PRN IV PUSH For SBP > 220 or DBP > 120; Start 02/12/17 at 14:30 Aspirin (Aspirin) 325 mg DAILY PO Last administered on 02/14/17 08:01; Start 02/13/17 at 09:00 Atorvastatin Calcium (Lipitor) 10 mg HS PO Last administered on 02/13/17 21: 00; Start 02/12/17 at 21:00 Clopidogrel Bisulfate (Plavix) 75 mg DAILY PO Last administered on 02/14/17 08 :02; Start 02/13/17 at 09:00 Sodium Chloride 1,000 ml @ 100 mls/hr Q10H IV Last administered on 02/13/17 21:00; Start 02/13/17 at 09:11 Multivitamins (Theragran) 1 tab ONCE ONCE PO Last administered on 02/13/17 09:44; Start 02/13/17 at 09:30; Stop 02/13/17 at 09:40; Status DC Multivitamins (Theragran) 1 tab DAILY PO Last administered on 02/14/17 08:01; Start 02/14/17 at 09:00 Folic Acid (Folate) 1 mg ONCE ONCE PO Last administered on 02/13/17 09:44; Start 02/13/17 at 09:30; Stop 02/13/17 at 09:39; Status DC Folic Acid (Folate) 1 mg DAILY PO Last administered on 02/14/17 08:01; Start 02/14/17 at 09:00 Iohexol (Omnipaque 350 Inj) 80 ml STK-MED ONCE IVCONTRAST Last administered on 02/13/17 12:48; Start 02/13/17 at 12:48; Stop 02/13/17 at 12:49; Status DC A/P Assessment and Plan Hemiparesis of right dominant side due to cerebrovascular disease: per radiology and neuro, likely a repeat stroke due to worsening of stenosis in previously infarcted area Medication noncompliance - patient not on any medications -Brain MRI shows acute or subacute lacunar type infarct in the left bass radiata and centrum semiovale -MRA shows patchy intrinsic atherosclerotic cerebral vascular disease with significant stenosis involving the left MCA and possible stenosis involving left 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 -Neurology following -Continue with aspirin, Plavix, and statin therapy -PT/OT evaluations -Consider discontinuing permissive HTN due to improvement in patient's symptoms after 24 hours Hyponatremia: improved from 129 at admission to 133 today -asymptomatic with pt eating and drinking regular diet -consider d/cing IV fluids due to BP concerns -monitor BMP Hypertension: max 183/116 today -Consider discontinuing permissive hypertension -Consder low dose ACEI for BP control since patient seeing improvements in stroke symptoms Tobacco abuse -Tobacco counseling cessation provided Alcohol abuse -Alcohol cessation counseling provided -[facility] protocol -Thiamine/Folic acid/MVI daily DVT prophylaxis: Bilateral SCDs Garland Painter M3 Feb 14, 2017 13:52
[2017-02-14] MEDS ORDERED: LISINOPRIL 10 MG TAB PO ONE (14:30)
--- NOTE | 2017-02-14 17:18 | HHI.PR ---
Subjective Remarks sr Objective Vital Signs Date Time Temp Pulse Resp B/P (MAP) Pulse Ox O2 Delivery O2 Flow Rate FiO2 02/14/17 15:57 97.1 75 20 180/97 (124) 98 02/14/17 11:50 97.3 79 20 175/93 (120) 96 02/14/17 09:39 70 02/14/17 08:30 97.6 75 20 183/116 (138) 97 02/14/17 06:00 97.6 80 18 146/89 (108) 96 02/14/17 00:22 98.1 79 18 194/103 (133) 96 02/13/17 23:00 76 02/13/17 20:57 97.7 77 18 146/114 (125) 96 I/O 02/13/17 02/13/17 02/13/17 02/14/17 02/14/17 02/14/17 07:00 15:00 23:00 07:00 15:00 23:00 Intake Total 500 ml 940 ml Output Total 550 ml Balance -550 ml 500 ml 940 ml Intake Oral 500 ml 940 ml Output Urine Total 550 ml # Voids 2 6 # Bowel Movements 0 Result Diagram: 02/12/17 0905 02/14/17 0611 Objective Remarks dec va os old ? cataract vff ok od best effort 5/5 [place] nl speech Assessment and Plan Assessment and Plan imp cta neck nl cta cow shows sign left mca stenosis and now has extened his infarct on asa i think his bes t chance for future stroke free is coumadin he need social studies teacher to see if he can get into a [place] and live there instead of street i dw him and he seems amenable to that if not on coumadin he is likley to have more cva and readmit here and wind up in [place] eventually anyway so i reccomend sq heparin started at 5000 bid and coumadin tonight will ask med team to start and dc plavix and dc asa when inr >1.9 Madi Rangel MD Feb 14, 2017 17:18
[2017-02-14] MEDS: ATORVASTATIN 10 MG TAB PO SCH (22:13)
[2017-02-15] VITALS (8 sets, daily range): BP systolic 128–167; BP diastolic 86–102; PULSE 62–105; RESP 18–20; TEMP 97.5–98.3; O2SAT 97–100
--- NOTE | 2017-02-15 08:39 | PD.PN.STU ---
Subjective Remarks Patient states weakness is about the same as yesterday with limited movement of right LE and slight weakness of right UE. Able to transfer to wheelchair and use bathroom. D/w patient possibility of getting wheelchair for use outside of hospital. Objective Vitals Vital Signs Date Time Temp Pulse Resp B/P (MAP) Pulse Ox O2 Delivery O2 Flow Rate FiO2 02/15/17 05:06 98.2 76 18 146/96 (113) 98 02/15/17 04:39 62 02/15/17 01:38 98.2 69 18 156/89 (111) 97 02/15/17 01:00 74 02/14/17 21:10 97.8 73 18 167/96 (119) 97 02/14/17 21:00 72 02/14/17 15:57 97.1 75 20 180/97 (124) 98 02/14/17 11:50 97.3 79 20 175/93 (120) 96 02/14/17 09:39 70 I/O 02/14/17 02/14/17 02/14/17 02/15/17 02/15/17 02/15/17 07:00 15:00 23:00 07:00 15:00 23:00 Intake Total 940 ml Output Total 300 ml 200 ml Balance 940 ml -300 ml -200 ml Intake Oral 940 ml Output Urine Total 300 ml 200 ml # Voids 2 6 # Bowel Movements 0 Result Diagram: 02/12/17 0905 02/14/17 0611 Objective Remarks GENERAL: Patient awake, sitting up in bed in no apparent distress. SKIN: Warm and dry. HEAD: Atraumatic. Normocephalic. EYES: Pupils equal and round. No scleral icterus. No injection or drainage. ENT: No nasal bleeding or discharge. Mucous membranes pink and moist. NECK: Trachea midline. No JVD. CARDIOVASCULAR: Regular rate and rhythm. RESPIRATORY: No accessory muscle use. Clear to auscultation. Breath sounds equal bilaterally. GASTROINTESTINAL: Abdomen soft, non-tender, nondistended. Hepatic and splenic margins not palpable. MUSCULOSKELETAL: Extremities without clubbing, cyanosis, or edema. No obvious deformities. NEUROLOGICAL: Awake and alert. No obvious cranial nerve deficits. Left extremities 5/5 strength. 4/5 strength in R LE, actively lifts off bed several inches but unable to move against resistance. 4/5 osteopathic physician strength in R UE. PSYCHIATRIC: Appropriate mood and affect; insight and judgment normal. Medications and IVs Current Medications Sodium Chloride (NS Flush) 2 ml UNSCH PRN IVF FLUSH AFTER USING IV ACCESS; Start 02/12/17 at 09:00; Stop 02/12/17 at 12:34; Status DC Sodium Chloride (NS Flush) 2 ml UNSCH PRN IV FLUSH FLUSH AFTER USING IV ACCESS ; Start 02/12/17 at 12:15 Sodium Chloride (NS Flush) 2 ml BID IV FLUSH Last administered on 02/14/17t 21: 00; Start 02/12/17 at 21:00 Acetaminophen (Tylenol) 650 mg Q4H PRN PO TEMP > 100.4; Start 02/12/17 at 12: 15 Ondansetron HCl (Zofran Inj) 4 mg Q6H PRN IVP NAUSEA OR VOMITING; Start at 12:15 Acetaminophen (Tylenol) 650 mg Q6H PRN PO PAIN SCALE 1 TO 2; Start 02/12/17 at 12:15 Naloxone HCl (Narcan Inj) 0.4 mg UNSCH PRN IV PUSH SEE LABEL COMMENTS; Start 02/12/17 at 12:15 Magnesium Hydroxide (Milk Of Magnesia Liq) 30 ml Q12H PRN PO Mild constipation ; Start 02/12/17 at 12:15 Aspirin (Aspirin) 325 mg ONCE ONCE PO Last administered on 02/12/17 14:25; Start 02/12/17 at 13:00; Stop 02/12/17 at 13:01; Status DC Flumazenil (Romazicon Inj) 0.2 mg Q1M PRN IV PUSH SEE LABEL COMMENTS; Start at 13:15; Stop 02/12/17 at 13:15; Status DC Lorazepam (Ativan) 1 mg Q4H PRN PO CIWA 8 - 10; Start 02/12/17 at 13:15; Stop 02/12/17 at 13:15; Status DC Lorazepam (Ativan Inj) 1 mg Q4H PRN IV PUSH CIWA 8 - 10; Start 02/12/17 at 13: 15; Stop 02/12/17 at 13:15; Status DC Lorazepam (Ativan) 2 mg Q2H PRN PO CIWA 11-14; Start 02/12/17 at 13:15; Stop 02/12/17 at 13:15; Status DC Lorazepam (Ativan Inj) 2 mg Q2H PRN IV PUSH CIWA 11-14; Start 02/12/17 at 13: 15; Stop 02/12/17 at 13:15; Status DC Lorazepam (Ativan Inj) 2 mg Q1H PRN IV PUSH CIWA 15-20; Start 02/12/17 at 13: 15; Stop 02/12/17 at 13:15; Status DC Lorazepam (Ativan Inj) 2 mg Q15M PRN IV PUSH CIWA > 20; Start 02/12/17 at 13: 15; Stop 02/12/17 at 13:15; Status DC Thiamine HCl (Vitamin B1) 100 mg DAILY PO ; Start 02/13/17 at 09:00; Stop at 09:00; Status DC Flumazenil (Romazicon Inj) 0.2 mg Q1M PRN IV PUSH SEE LABEL COMMENTS; Start at 13:31 Lorazepam (Ativan) 1 mg Q4H PRN PO CIWA 8 - 10; Start 02/12/17 at 13:30 Lorazepam (Ativan Inj) 1 mg Q4H PRN IV PUSH CIWA 8 - 10; Start 02/12/17 at 13: 30 Lorazepam (Ativan) 2 mg Q2H PRN PO CIWA 11-14; Start 02/12/17 at 13:30 Lorazepam (Ativan Inj) 2 mg Q2H PRN IV PUSH CIWA 11-14; Start 02/12/17 at 13: 30 Lorazepam (Ativan Inj) 2 mg Q1H PRN IV PUSH CIWA 15-20; Start 02/12/17 at 13: 30 Lorazepam (Ativan Inj) 2 mg Q15M PRN IV PUSH CIWA > 20; Start 02/12/17 at 13: 45 Thiamine HCl (Vitamin B1) 100 mg DAILY PO Last administered on 02/14/17 08:01 ; Start 02/13/17 at 09:00 Nicotine (Habitrol 21 Mg Patch.24 Hr) 1 patch DAILY T-DERMAL Last administered on 02/13/17 09:27; Start 02/13/17 at 09:00; Stop 02/13/17 at 09:57; Status DC Miscellaneous Information 1 DAILY T-DERMAL Last administered on 02/13/17 09: 38; Start 02/13/17 at 09:00; Stop 02/13/17 at 09:57; Status DC Enalaprilat (Vasotec Inj) 1.25 mg Q4H PRN IV PUSH For SBP > 180 or DBP > 90; Start 02/12/17 at 14:30 Aspirin (Aspirin) 325 mg DAILY PO Last administered on 02/14/17 08:01; Start 02/13/17 at 09:00 Atorvastatin Calcium (Lipitor) 10 mg HS PO Last administered on 02/14/17 22:13 ; Start 02/12/17 at 21:00 Clopidogrel Bisulfate (Plavix) 75 mg DAILY PO Last administered on 02/14/17 08 :02; Start 02/13/17 at 09:00 Sodium Chloride 1,000 ml @ 100 mls/hr Q10H IV Last administered on 02/13/17 21:00; Start 02/13/17 at 09:11; Stop 02/14/17 at 13:57; Status DC Multivitamins (Theragran) 1 tab ONCE ONCE PO Last administered on 02/13/17 09:44; Start 02/13/17 at 09:30; Stop 02/13/17 at 09:40; Status DC Multivitamins (Theragran) 1 tab DAILY PO Last administered on 02/14/17 08:01; Start 02/14/17 at 09:00 Folic Acid (Folate) 1 mg ONCE ONCE PO Last administered on 02/13/17 09:44; Start 02/13/17 at 09:30; Stop 02/13/17 at 09:39; Status DC Folic Acid (Folate) 1 mg DAILY PO Last administered on 02/14/17 08:01; Start 02/14/17 at 09:00 Iohexol (Omnipaque 350 Inj) 80 ml STK-MED ONCE IVCONTRAST Last administered on 02/13/17 12:48; Start 02/13/17 at 12:48; Stop 02/13/17 at 12:49; Status DC Lisinopril (Prinivil) 10 mg ONCE ONCE PO Last administered on 02/14/17 16:22 ; Start 02/14/17 at 14:30; Stop 02/14/17 at 14:31; Status DC Lisinopril (Prinivil) 10 mg DAILY PO ; Start 02/15/17 at 09:00 A/P Assessment and Plan Hemiparesis of right dominant side due to cerebrovascular disease: per radiology and neuro, likely a repeat stroke due to worsening of stenosis in previously infarcted area Medication noncompliance - patient not on any medications -Brain MRI shows acute or subacute lacunar type infarct in the left bass radiata and centrum semiovale -MRA shows patchy intrinsic atherosclerotic cerebral vascular disease with significant stenosis involving the left MCA and 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 -Neurology following -Continue with aspirin, Plavix, and statin therapy- neuro recommended switch from Plavix to coumadin, although noncompliance out of the hospital would be an issue -PT/OT evaluations Hyponatremia: improved from 129 at admission to 133 yesterday -asymptomatic with pt eating and drinking regular diet -recheck BMP Hypertension: 140/80 today, improved from previously -Continue lisinopril Tobacco abuse -Tobacco counseling cessation provided Alcohol abuse -Alcohol cessation counseling provided -[facility] protocol -Thiamine/Folic acid/MVI daily DVT prophylaxis: Bilateral SCDs Garland Painter M3 Feb 15, 2017 08:39
[2017-02-15] MEDS: ASPIRIN 325 MG TAB PO SCH (08:51)
[2017-02-15] MEDS: LISINOPRIL 10 MG TAB PO SCH (08:51)
[2017-02-15] MEDS: THIAMINE HCL 100 MG TAB PO SCH (08:51)
[2017-02-15] MEDS: FOLIC ACID 1 MG TAB PO SCH (08:51)
[2017-02-15] MEDS: SODIUM CHLORIDE 0.9% FLUSH 10 ML FLUSH IV FLUSH SCH ×2 (08:51→21:00)
[2017-02-15] MEDS: CLOPIDOGREL 75 MG TAB PO SCH (08:51)
[2017-02-15] MEDS: MULTIVITAMIN TAB PO SCH (08:51)
--- NOTE | 2017-02-15 10:33 | HHI.PR ---
Subjective Remarks No change in right sided weakness. Discussed with RN. Patient was found smoking in his room. Objective Vitals Vital Signs Date Time Temp Pulse Resp B/P (MAP) Pulse Ox O2 Delivery O2 Flow Rate FiO2 02/15/17 09:07 97.5 80 20 142/86 (104) 98 02/15/17 05:06 98.2 76 18 146/96 (113) 98 02/15/17 04:39 62 02/15/17 01:38 98.2 69 18 156/89 (111) 97 02/15/17 01:00 74 02/14/17 21:10 97.8 73 18 167/96 (119) 97 02/14/17 21:00 72 02/14/17 15:57 97.1 75 20 180/97 (124) 98 02/14/17 11:50 97.3 79 20 175/93 (120) 96 I/O 02/14/17 02/14/17 02/14/17 02/15/17 02/15/17 02/15/17 07:00 15:00 23:00 07:00 15:00 23:00 Intake Total 940 ml Output Total 300 ml 200 ml Balance 940 ml -300 ml -200 ml Intake Oral 940 ml Output Urine Total 300 ml 200 ml # Voids 2 6 # Bowel Movements 0 Result Diagram: 02/12/17 0905 02/14/17 0611 Objective Remarks GENERAL: This is a well-nourished, well-developed patient, in no apparent distress. CARDIOVASCULAR: Normal rate and regular rhythm without murmurs, gallops, or rubs. RESPIRATORY: Good respiratory efforts. Breath sounds equal and clear to auscultation bilaterally. GASTROINTESTINAL: Abdomen soft, non-tender, non-distended. Normal active bowel sounds MUSCULOSKELETAL: Extremities without cyanosis, or edema. NEURO: Alert & Oriented x4 to person, place, time, situation. Right hand lower extremity strength is 3 out of 5. Left sided has normal strength. PSYCH: Appropriate mood and affect. 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 Patient had residual right sided weakness. He was started on aspirin but never filled the prescription because he states he could not afford the medications. He continues to drink alcohol daily. Patient readmitted again with what appear to be progression of the left hemispheric infarct. He has had worsening hemiparesis on the right on this presentation. 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 Medication noncompliance - - Appreciate neurology following. The patient was started on Plavix and aspirin. Continue statin. Telemetry reviewed since his arrival. No arrhythmia noted. Patient's biggest barriers to get better are his noncompliance and homelessness. He does not have any insurance benefit for SNF placement. Neurology recommended Coumadin to reduce risk of further stroke. Will start Coumadin. Plan to discontinue aspirin and Plavix once INR is =/ above 2. Unfortunately the patient is noncompliant. Case management following to see if there is any way to place him at a custodial facility where he could receive medications regularly. - Patient was counseled on the need to be compliant with treatment during the hospitalization and outpatient. - Daily PT Hyponatremia: Chronic, likely secondary to alcohol abuse. Asymptomatic. - Monitor Hypertension: Has been untreated based on review of his records. -Continue lisinopril Tobacco abuse -Tobacco counseling cessation provided Alcohol abuse -Alcohol cessation counseling provided -[facility] protocol -Thiamine/Folic acid/MVI daily DVT prophylaxis: Bilateral SCDs Discharge Planning Discussed with case management. Patient has no benefit for SNF. Continue rehabilitation efforts. He may need to return to his previous living arrangements. Problem Qualifiers (1) CVA (cerebral vascular accident): Qualified Codes: I63.9 - Cerebral infarction, unspecified Sangeetha Zayas MD Feb 15, 2017 10:33
[2017-02-15] MEDS: HEPARIN SODIUM - SQ 10,000 UNITS/ML VIAL SQ SCH (14:06)
[2017-02-15 15:15] LABS: PROTHROMBIN TIME - PATIENT 9.9 SEC (9.8-11.6)
[2017-02-15] MEDS: WARFARIN SOD 5 MG TAB PO SCH (17:57)
[2017-02-15] MEDS: ATORVASTATIN 10 MG TAB PO SCH (21:27)
[2017-02-15] MEDS: ENALAPRILAT 1.25 MG/ML VIAL IV PUSH PRN (21:28)
[2017-02-16] VITALS (8 sets, daily range): BP systolic 140–196; BP diastolic 76–105; PULSE 56–85; RESP 18–20; TEMP 97.3–98.7; O2SAT 95–98
[2017-02-16] MEDS: HEPARIN SODIUM - SQ 10,000 UNITS/ML VIAL SQ SCH ×2 (02:16→13:05)
[2017-02-16] MEDS: ENALAPRILAT 1.25 MG/ML VIAL IV PUSH PRN ×2 (05:47→21:10)
[2017-02-16] MEDS: SODIUM CHLORIDE 0.9% FLUSH 10 ML FLUSH IV FLUSH SCH ×2 (08:07→21:09)
[2017-02-16] MEDS: ASPIRIN 325 MG TAB PO SCH (08:08)
[2017-02-16] MEDS: FOLIC ACID 1 MG TAB PO SCH (08:08)
[2017-02-16] MEDS: MULTIVITAMIN TAB PO SCH (08:08)
[2017-02-16] MEDS: LISINOPRIL 10 MG TAB PO SCH (08:08)
[2017-02-16] MEDS: CLOPIDOGREL 75 MG TAB PO SCH (08:08)
[2017-02-16] MEDS: THIAMINE HCL 100 MG TAB PO SCH (08:09)
--- NOTE | 2017-02-16 09:05 | PD.PN.STU ---
Subjective Remarks Patient states right sided weakness is unchanged. States that he has not been getting out of bed, using bedside urinal. No other complaints. Objective Vitals Vital Signs Date Time Temp Pulse Resp B/P (MAP) Pulse Ox O2 Delivery O2 Flow Rate FiO2 02/16/17 07:00 79 153/83 (106) 02/16/17 04:00 98.4 68 18 175/99 (124) 97 02/16/17 00:00 97.6 81 20 140/76 (97) 96 02/15/17 20:00 98.3 76 18 167/101 (123) 98 02/15/17 16:53 98.3 77 20 150/102 (118) 97 02/15/17 11:49 97.9 105 20 128/87 (101) 100 02/15/17 09:07 97.5 80 20 142/86 (104) 98 I/O 02/15/17 02/15/17 02/15/17 02/16/17 02/16/17 02/16/17 07:00 15:00 23:00 07:00 15:00 23:00 Intake Total 720 ml Output Total 200 ml 600 ml 300 ml 1400 ml Balance -200 ml 120 ml -300 ml -1400 ml Intake Oral 720 ml Output Urine Total 200 ml 600 ml 300 ml 1400 ml # Bowel Movements 0 Result Diagram: 02/12/1790402/14/17 0611 Objective Remarks GENERAL: Patient awake, sitting up in bed eating breakfast in no apparent distress. Expresses anger at being interrupted. SKIN: Warm and dry. HEAD: Atraumatic. Normocephalic. EYES: Pupils equal and round. No scleral icterus. No injection or drainage. ENT: No nasal bleeding or discharge. Mucous membranes pink and moist. NECK: Trachea midline. No JVD. CARDIOVASCULAR: Regular rate and rhythm. RESPIRATORY: No accessory muscle use. Clear to auscultation. Breath sounds equal bilaterally. GASTROINTESTINAL: Abdomen soft, non-tender, nondistended. Hepatic and splenic margins not palpable. MUSCULOSKELETAL: Extremities without clubbing, cyanosis, or edema. No obvious deformities. NEUROLOGICAL: Awake and alert. No obvious cranial nerve deficits. Left extremities 5/5 strength. 4/5 strength in R LE, actively lifts off bed several inches but unable to move against resistance. 4/5 front desk strength in R UE. PSYCHIATRIC: Appropriate mood and affect; insight and judgment normal. Medications and IVs Current Medications Sodium Chloride (NS Flush) 2 ml UNSCH PRN IVF FLUSH AFTER USING IV ACCESS; Start 02/12/17 at 09:00; Stop 02/12/17 at 12:34; Status DC Sodium Chloride (NS Flush) 2 ml UNSCH PRN IV FLUSH FLUSH AFTER USING IV ACCESS ; Start 02/12/17 at 12:15 Sodium Chloride (NS Flush) 2 ml BID IV FLUSH Last administered on 02/16/17t 08: 07; Start 02/12/17 at 21:00 Acetaminophen (Tylenol) 650 mg Q4H PRN PO TEMP > 100.4; Start 02/12/17 at 12: 15 Ondansetron HCl (Zofran Inj) 4 mg Q6H PRN IVP NAUSEA OR VOMITING; Start at 12:15 Acetaminophen (Tylenol) 650 mg Q6H PRN PO PAIN SCALE 1 TO 2; Start 02/12/17 at 12:15 Naloxone HCl (Narcan Inj) 0.4 mg UNSCH PRN IV PUSH SEE LABEL COMMENTS; Start 02/12/17 at 12:15 Magnesium Hydroxide (Milk Of Magncarrie Liq) 30 ml Q12H PRN PO Mild constipation ; Start 02/12/17 at 12:15 Aspirin (Aspirin) 325 mg ONCE ONCE PO Last administered on 02/12/17t 14:25; Start 02/12/17 at 13:00; Stop 02/12/17 at 13:01; Status DC Flumazenil (Romazicon Inj) 0.2 mg Q1M PRN IV PUSH SEE LABEL COMMENTS; Start at 13:15; Stop 02/12/17 at 13:15; Status DC Lorazepam (Ativan) 1 mg Q4H PRN PO CIWA 8 - 10; Start 02/12/17 at 13:15; Stop 02/12/17 at 13:15; Status DC Lorazepam (Ativan Inj) 1 mg Q4H PRN IV PUSH CIWA 8 - 10; Start 02/12/17 at 13: 15; Stop 02/12/17 at 13:15; Status DC Lorazepam (Ativan) 2 mg Q2H PRN PO CIWA 11-14; Start 02/12/17 at 13:15; Stop 02/12/17 at 13:15; Status DC Lorazepam (Ativan Inj) 2 mg Q2H PRN IV PUSH CIWA 11-14; Start 02/12/17 at 13: 15; Stop 02/12/17 at 13:15; Status DC Lorazepam (Ativan Inj) 2 mg Q1H PRN IV PUSH CIWA 15-20; Start 02/12/17 at 13: 15; Stop 02/12/17 at 13:15; Status DC Lorazepam (Ativan Inj) 2 mg Q15M PRN IV PUSH CIWA > 20; Start 02/12/17 at 13: 15; Stop 02/12/17 at 13:15; Status DC Thiamine HCl (Vitamin B1) 100 mg DAILY PO ; Start 02/13/17 at 09:00; Stop at 09:00; Status DC Flumazenil (Romazicon Inj) 0.2 mg Q1M PRN IV PUSH SEE LABEL COMMENTS; Start at 13:31 Lorazepam (Ativan) 1 mg Q4H PRN PO CIWA 8 - 10; Start 02/12/17 at 13:30 Lorazepam (Ativan Inj) 1 mg Q4H PRN IV PUSH CIWA 8 - 10; Start 02/12/17 at 13: 30 Lorazepam (Ativan) 2 mg Q2H PRN PO CIWA 11-14; Start 02/12/17 at 13:30 Lorazepam (Ativan Inj) 2 mg Q2H PRN IV PUSH CIWA 11-14; Start 02/12/17 at 13: 30 Lorazepam (Ativan Inj) 2 mg Q1H PRN IV PUSH CIWA 15-20; Start 02/12/17 at 13: 30 Lorazepam (Ativan Inj) 2 mg Q15M PRN IV PUSH CIWA > 20; Start 02/12/17 at 13: 45 Thiamine HCl (Vitamin B1) 100 mg DAILY PO Last administered on 02/16/17 08:09 ; Start 02/13/17 at 09:00 Nicotine (Habitrol 21 Mg Patch.24 Hr) 1 patch DAILY T-DERMAL Last administered on 02/13/17 09:27; Start 02/13/17 at 09:00; Stop 02/13/17 at 09:57; Status DC Miscellaneous Information 1 DAILY T-DERMAL Last administered on 02/13/17 09: 38; Start 02/13/17 at 09:00; Stop 02/13/17 at 09:57; Status DC Enalaprilat (Vasotec Inj) 1.25 mg Q4H PRN IV PUSH For SBP > 180 or DBP > 90 Last administered on 02/16/17 05:47; Start 02/12/17 at 14:30 Aspirin (Aspirin) 325 mg DAILY PO Last administered on 02/16/17 08:08; Start 02/13/17 at 09:00 Atorvastatin Calcium (Lipitor) 10 mg HS PO Last administered on 02/15/17 21:27 ; Start 02/12/17 at 21:00 Clopidogrel Bisulfate (Plavix) 75 mg DAILY PO Last administered on 02/16/17 08 :08; Start 02/13/17 at 09:00 Sodium Chloride 1,000 ml @ 100 mls/hr Q10H IV Last administered on 02/13/17 21:00; Start 02/13/17 at 09:11; Stop 02/14/17 at 13:57; Status DC Multivitamins (Theragran) 1 tab ONCE ONCE PO Last administered on 02/13/17 09:44; Start 02/13/17 at 09:30; Stop 02/13/17 at 09:40; Status DC Multivitamins (Theragran) 1 tab DAILY PO Last administered on 02/16/17 08:08; Start 02/14/17 at 09:00 Folic Acid (Folate) 1 mg ONCE ONCE PO Last administered on 02/13/17 09:44; Start 02/13/17 at 09:30; Stop 02/13/17 at 09:39; Status DC Folic Acid (Folate) 1 mg DAILY PO Last administered on 02/16/17 08:08; Start 02/14/17 at 09:00 Iohexol (Omnipaque 350 Inj) 80 ml STK-MED ONCE IVCONTRAST Last administered on 02/13/17 12:48; Start 02/13/17 at 12:48; Stop 02/13/17 at 12:49; Status DC Lisinopril (Prinivil) 10 mg ONCE ONCE PO Last administered on 02/14/17 16:22 ; Start 02/14/17 at 14:30; Stop 02/14/17 at 14:31; Status DC Lisinopril (Prinivil) 10 mg DAILY PO Last administered on 02/16/17 08:08; Start 02/15/17 at 09:00 Heparin Sodium (Porcine) (Heparin Inj) 5,000 units Q12H SQ Last administered on 02/16/17 02:16; Start 02/15/17 at 13:00 Warfarin Sodium (Coumadin) 5 mg DAILY@1600 PO Last administered on 02/15/17 17 :57; Start 02/15/17 at 18:00 Patient Medication Teaching (Coumadin Booklet) 1 ONCE ONCE OTHER Last administered on 02/15/17 17:56; Start 02/15/17 at 17:30; Stop 02/15/17 at 17:31 ; Status DC A/P Assessment and Plan Hemiparesis of right dominant side due to cerebrovascular disease: per radiology and neuro, likely a repeat stroke due to worsening of stenosis in previously infarcted area Medication noncompliance - patient not on any medications -Brain MRI shows acute or subacute lacunar type infarct in the left bass radiata and centrum semiovale -MRA shows patchy intrinsic atherosclerotic cerebral vascular disease with significant stenosis involving the left MCA and 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 -Neurology following -Continue with aspirin, coumadin, and statin therapy- neuro recommended switch from Plavix to coumadin, although noncompliance out of the hospital would be an issue -Continue daily PT Hyponatremia: improved from admission -asymptomatic with pt eating and drinking regular diet -recheck BMP Hypertension: still running high at times -Continue lisinopril, consider increasing dose Tobacco abuse -Tobacco counseling cessation provided Alcohol abuse -Alcohol cessation counseling provided -[facility] protocol -Thiamine/Folic acid/MVI daily DVT prophylaxis: Bilateral SCDs Garland Painter M3 Feb 16, 2017 09:04
--- NOTE | 2017-02-16 10:47 | HHI.PR ---
Subjective Remarks Patient reports right-sided weakness is unchanged. Blood pressure has been uncontrolled. Objective Vitals Vital Signs Date Time Temp Pulse Resp B/P (MAP) Pulse Ox O2 Delivery O2 Flow Rate FiO2 02/16/17 08:00 97.3 85 18 153/93 (113) 98 02/16/17 07:00 79 153/83 (106) 02/16/17 04:00 98.4 68 18 175/99 (124) 97 02/16/17 00:00 97.6 81 20 140/76 (97) 96 02/15/17 20:00 98.3 76 18 167/101 (123) 98 02/15/17 16:53 98.3 77 20 150/102 (118) 97 02/15/17 11:49 97.9 105 20 128/87 (101) 100 I/O 02/15/17 02/15/17 02/15/17 02/16/17 02/16/17 02/16/17 07:00 15:00 23:00 07:00 15:00 23:00 Intake Total 720 ml Output Total 200 ml 600 ml 300 ml 1400 ml Balance -200 ml 120 ml -300 ml -1400 ml Intake Oral 720 ml Output Urine Total 200 ml 600 ml 300 ml 1400 ml # Bowel Movements 0 Result Diagram: 02/12/17 0905 02/14/17 0611 Objective Remarks GENERAL: This is a well-nourished, well-developed patient, in no apparent distress. CARDIOVASCULAR: Normal rate and regular rhythm without murmurs, gallops, or rubs. RESPIRATORY: Good respiratory efforts. Breath sounds equal and clear to auscultation bilaterally. GASTROINTESTINAL: Abdomen soft, non-tender, non-distended. Normal active bowel sounds MUSCULOSKELETAL: Extremities without cyanosis, or edema. NEURO: Alert & Oriented x4 to person, place, time, situation. Right hand lower extremity strength is 3 out of 5. Left sided has normal strength. PSYCH: Appropriate mood and affect. 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 Patient had residual right sided weakness. He was started on aspirin but never filled the prescription because he states he could not afford the medications. He continues to drink alcohol daily. Patient readmitted again with what appear to be progression of the left hemispheric infarct. He has had worsening hemiparesis on the right on this presentation. 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 Medication noncompliance - - Appreciate neurology following. The patient was started on Plavix and aspirin. Continue statin. Telemetry reviewed since his arrival. No arrhythmia noted. Patient's biggest barriers to get better are his noncompliance and homelessness. He does not have any insurance benefit for SNF placement. Neurology recommended Coumadin to reduce risk of further stroke. Continue Coumadin. Plan to discontinue aspirin and Plavix once INR is =/above 2. Unfortunately the patient is noncompliant. Case management following to see if there is any way to place him at a residential facility where he could receive medications regularly. - Patient was counseled on the need to be compliant with treatment during the hospitalization and outpatient. - Daily PT Hyponatremia: Chronic, likely secondary to alcohol abuse. Asymptomatic. - Monitor Hypertension: Has been untreated based on review of his records. Uncontrolled -Increase lisinopril to 20 mg Tobacco abuse -Tobacco counseling cessation provided Alcohol abuse -Alcohol cessation counseling provided -[facility] protocol -Thiamine/Folic acid/MVI daily DVT prophylaxis: Bilateral SCDs Discharge Planning Discussed with case management. Patient has no benefit for SNF. Continue rehabilitation efforts. He may need to return to his previous living arrangements. Problem Qualifiers (1) CVA (cerebral vascular accident): Qualified Codes: I63.9 - Cerebral infarction, unspecified Sangeetha Zayas MD Feb 16, 2017 10:47
[2017-02-16 11:18] LABS: HEMATOCRIT 41.6 % (39.0-51.0); MEAN CORPUSCULAR HEMOGLOBIN 33.1 PG (27.0-34.0); MEAN CORPUSCULAR HGB CONC 34.5 % (32.0-36.0); PLATELET COUNT 249 TH/MM3 (150-450); RED BLOOD COUNT 4.34 MIL/MM3 (4.50-5.90); RED CELL DISTRIBUTION WIDTH 13.1 % (11.6-17.2); REVIEW FLAG FINAL; WHITE BLOOD COUNT 7.5 TH/MM3 (4.0-11.0)
[2017-02-16 11:27] LABS: PROTHROMBIN TIME - PATIENT 9.7 SEC (9.8-11.6)
[2017-02-16] MEDS ORDERED: LISINOPRIL 10 MG TAB PO ONE (13:15)
[2017-02-16] MEDS: WARFARIN SOD 5 MG TAB PO SCH (16:14)
[2017-02-16] MEDS: ATORVASTATIN 10 MG TAB PO SCH (21:10)
[2017-02-17] VITALS (7 sets, daily range): BP systolic 134–175; BP diastolic 79–98; PULSE 69–80; RESP 17–20; TEMP 96.1–98.6; O2SAT 97–100
[2017-02-17] MEDS: HEPARIN SODIUM - SQ 10,000 UNITS/ML VIAL SQ SCH ×2 (01:00→12:07)
[2017-02-17] MEDS: ENALAPRILAT 1.25 MG/ML VIAL IV PUSH PRN (03:12)
[2017-02-17 07:39] LABS: PROTHROMBIN TIME - PATIENT 9.7 SEC (9.8-11.6)
--- NOTE | 2017-02-17 08:07 | HHI.PR ---
Subjective Remarks sr Objective Vital Signs Date Time Temp Pulse Resp B/P (MAP) Pulse Ox O2 Delivery O2 Flow Rate FiO2 02/17/17 04:14 139/85 (103) 02/16/17 22:46 65 196/104 (134) 189/105 (133) 02/16/17 20:00 97.9 61 20 181/97 (125) 96 02/16/17 16:00 98.7 83 18 174/96 (122) 96 02/16/17 12:00 98.3 56 18 152/84 (106) 95 I/O 02/16/17 02/16/17 02/16/17 02/17/17 02/17/17 02/17/17 07:00 15:00 23:00 07:00 15:00 23:00 Output Total 1400 ml 3100 ml Balance -1400 ml -3100 ml Output Urine Total 1400 ml 3100 ml # Voids 2 Result Diagram: 02/16/17 1020 02/14/17 0611 Objective Remarks va os old ? 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
[2017-02-17] MEDS: SODIUM CHLORIDE 0.9% FLUSH 10 ML FLUSH IV FLUSH SCH ×2 (09:00→21:38)
[2017-02-17] MEDS ORDERED: LISINOPRIL 10 MG TAB PO SCH (09:00)
[2017-02-17] MEDS: THIAMINE HCL 100 MG TAB PO SCH (09:12)
[2017-02-17] MEDS: FOLIC ACID 1 MG TAB PO SCH (09:12)
[2017-02-17] MEDS: MULTIVITAMIN TAB PO SCH (09:13)
[2017-02-17] MEDS: LISINOPRIL 20 MG TAB PO SCH (09:13)
[2017-02-17] MEDS: ASPIRIN 325 MG TAB PO SCH (09:13)
--- NOTE | 2017-02-17 09:18 | PD.PN.STU ---
Subjective Remarks Patient reports weakness mildly improved today. Was able to use walker with difficulty yesterday during PT session. Complains of not having cigarettes. Objective Vitals Vital Signs Date Time Temp Pulse Resp B/P (MAP) Pulse Ox O2 Delivery O2 Flow Rate FiO2 02/17/17 08:38 97.7 72 17 175/98 (123) 100 02/17/17 04:14 139/85 (103) 02/16/17 22:46 65 196/104 (134) 189/105 (133) 02/16/17 20:00 97.9 61 20 181/97 (125) 96 02/16/17 16:00 98.7 83 18 174/96 (122) 96 02/16/17 12:00 98.3 56 18 152/84 (106) 95 I/O 02/16/17 02/16/17 02/16/17 02/17/17 02/17/17 02/17/17 07:00 15:00 23:00 07:00 15:00 23:00 Output Total 1400 ml 3100 ml Balance -1400 ml -3100 ml Output Urine Total 1400 ml 3100 ml # Voids 2 Result Diagram: 02/16/17 1020 02/14/17 0611 Objective Remarks GENERAL: Patient awake, sitting up in lying back in bed in no apparent distress. SKIN: Warm and dry. HEAD: Atraumatic. Normocephalic. EYES: Pupils equal and round. No scleral icterus. No injection or drainage. ENT: No nasal bleeding or discharge. Mucous membranes pink and moist. NECK: Trachea midline. No JVD. CARDIOVASCULAR: Regular rate and rhythm. RESPIRATORY: No accessory muscle use. Clear to auscultation. Breath sounds equal bilaterally. GASTROINTESTINAL: Abdomen soft, non-tender, nondistended. Hepatic and splenic margins not palpable. MUSCULOSKELETAL: Extremities without clubbing, cyanosis, or edema. No obvious deformities. NEUROLOGICAL: Awake and alert. No obvious cranial nerve deficits. Left extremities 5/5 strength. 2/5 strength in R LE, actively lifts off bed further than previous days but unable to move against resistance. 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 PSYCHIATRIC: Appropriate mood and affect; insight and judgment normal. Medications and IVs Current Medications Sodium Chloride (NS Flush) 2 ml UNSCH PRN IVF FLUSH AFTER USING IV ACCESS; Start 02/12/17 at 09:00; Stop 02/12/17 at 12:34; Status DC Sodium Chloride (NS Flush) 2 ml UNSCH PRN IV FLUSH FLUSH AFTER USING IV ACCESS ; Start 02/12/17 at 12:15 Sodium Chloride (NS Flush) 2 ml BID IV FLUSH Last administered on 02/16/17t 21: 09; Start 02/12/17 at 21:00 Acetaminophen (Tylenol) 650 mg Q4H PRN PO TEMP > 100.4; Start 02/12/17 at 12: 15 Ondansetron HCl (Zofran Inj) 4 mg Q6H PRN IVP NAUSEA OR VOMITING; Start at 12:15 Acetaminophen (Tylenol) 650 mg Q6H PRN PO PAIN SCALE 1 TO 2; Start 02/12/17 at 12:15 Naloxone HCl (Narcan Inj) 0.4 mg UNSCH PRN IV PUSH SEE LABEL COMMENTS; Start 02/12/17 at 12:15 Magnesium Hydroxide (Milk Of Magncarrie Liq) 30 ml Q12H PRN PO Mild constipation ; Start 02/12/17 at 12:15 Aspirin (Aspirin) 325 mg ONCE ONCE PO Last administered on 02/12/17t 14:25; Start 02/12/17 at 13:00; Stop 02/12/17 at 13:01; Status DC Flumazenil (Romazicon Inj) 0.2 mg Q1M PRN IV PUSH SEE LABEL COMMENTS; Start at 13:15; Stop 02/12/17 at 13:15; Status DC Lorazepam (Ativan) 1 mg Q4H PRN PO CIWA 8 - 10; Start 02/12/17 at 13:15; Stop 02/12/17 at 13:15; Status DC Lorazepam (Ativan Inj) 1 mg Q4H PRN IV PUSH CIWA 8 - 10; Start 02/12/17 at 13: 15; Stop 02/12/17 at 13:15; Status DC Lorazepam (Ativan) 2 mg Q2H PRN PO CIWA 11-14; Start 02/12/17 at 13:15; Stop 02/12/17 at 13:15; Status DC Lorazepam (Ativan Inj) 2 mg Q2H PRN IV PUSH CIWA 11-14; Start 02/12/17 at 13: 15; Stop 02/12/17 at 13:15; Status DC Lorazepam (Ativan Inj) 2 mg Q1H PRN IV PUSH CIWA 15-20; Start 02/12/17 at 13: 15; Stop 02/12/17 at 13:15; Status DC Lorazepam (Ativan Inj) 2 mg Q15M PRN IV PUSH CIWA > 20; Start 02/12/17 at 13: 15; Stop 02/12/17 at 13:15; Status DC Thiamine HCl (Vitamin B1) 100 mg DAILY PO ; Start 02/13/17 at 09:00; Stop at 09:00; Status DC Flumazenil (Romazicon Inj) 0.2 mg Q1M PRN IV PUSH SEE LABEL COMMENTS; Start at 13:31 Lorazepam (Ativan) 1 mg Q4H PRN PO CIWA 8 - 10; Start 02/12/17 at 13:30 Lorazepam (Ativan Inj) 1 mg Q4H PRN IV PUSH CIWA 8 - 10; Start 02/12/17 at 13: 30 Lorazepam (Ativan) 2 mg Q2H PRN PO CIWA 11-14; Start 02/12/17 at 13:30 Lorazepam (Ativan Inj) 2 mg Q2H PRN IV PUSH CIWA 11-14; Start 02/12/17 at 13: 30 Lorazepam (Ativan Inj) 2 mg Q1H PRN IV PUSH CIWA 15-20; Start 02/12/17 at 13: 30 Lorazepam (Ativan Inj) 2 mg Q15M PRN IV PUSH CIWA > 20; Start 02/12/17 at 13: 45 Thiamine HCl (Vitamin B1) 100 mg DAILY PO Last administered on 02/16/17 08:09 ; Start 02/13/17 at 09:00 Nicotine (Habitrol 21 Mg Patch.24 Hr) 1 patch DAILY T-DERMAL Last administered on 02/13/17 09:27; Start 02/13/17 at 09:00; Stop 02/13/17 at 09:57; Status DC Miscellaneous Information 1 DAILY T-DERMAL Last administered on 02/13/17 09: 38; Start 02/13/17 at 09:00; Stop 02/13/17 at 09:57; Status DC Enalaprilat (Vasotec Inj) 1.25 mg Q4H PRN IV PUSH For SBP > 180 or DBP > 90 Last administered on 02/17/17 03:12; Start 02/12/17 at 14:30 Aspirin (Aspirin) 325 mg DAILY PO Last administered on 02/16/17 08:08; Start 02/13/17 at 09:00 Atorvastatin Calcium (Lipitor) 10 mg HS PO Last administered on 02/16/17 21:10 ; Start 02/12/17 at 21:00 Clopidogrel Bisulfate (Plavix) 75 mg DAILY PO Last administered on 02/16/17 08 :08; Start 02/13/17 at 09:00; Stop 02/17/17 at 08:06; Status DC Sodium Chloride 1,000 ml @ 100 mls/hr Q10H IV Last administered on 02/13/17 21:00; Start 02/13/17 at 09:11; Stop 02/14/17 at 13:57; Status DC Multivitamins (Theragran) 1 tab ONCE ONCE PO Last administered on 02/13/17 09:44; Start 02/13/17 at 09:30; Stop 02/13/17 at 09:40; Status DC Multivitamins (Theragran) 1 tab DAILY PO Last administered on 02/16/17 08:08; Start 02/14/17 at 09:00 Folic Acid (Folate) 1 mg ONCE ONCE PO Last administered on 02/13/17 09:44; Start 02/13/17 at 09:30; Stop 02/13/17 at 09:39; Status DC Folic Acid (Folate) 1 mg DAILY PO Last administered on 02/16/17 08:08; Start 02/14/17 at 09:00 Iohexol (Omnipaque 350 Inj) 80 ml STK-MED ONCE IVCONTRAST Last administered on 02/13/17 12:48; Start 02/13/17 at 12:48; Stop 02/13/17 at 12:49; Status DC Lisinopril (Prinivil) 10 mg ONCE ONCE PO Last administered on 02/14/17 16:22 ; Start 02/14/17 at 14:30; Stop 02/14/17 at 14:31; Status DC Lisinopril (Prinivil) 10 mg DAILY PO Last administered on 02/16/17 08:08; Start 02/15/17 at 09:00; Stop 02/16/17 at 13:11; Status DC Heparin Sodium (Porcine) (Heparin Inj) 5,000 units Q12H SQ Last administered on 02/16/17 13:05; Start 02/15/17 at 13:00 Warfarin Sodium (Coumadin) 5 mg DAILY@1600 PO Last administered on 02/16/17 16 :14; Start 02/15/17 at 18:00 Patient Medication Teaching (Coumadin Booklet) 1 ONCE ONCE OTHER Last administered on 02/15/17 17:56; Start 02/15/17 at 17:30; Stop 02/15/17 at 17:31 ; Status DC Lisinopril (Prinivil) 20 mg DAILY PO ; Start 02/17/17 at 09:00; Stop 02/17/17 at 09:00; Status DC Lisinopril (Prinivil) 10 mg ONCE ONCE PO Last administered on 02/16/17 14:22 ; Start 02/16/17 at 13:15; Stop 02/16/17 at 13:16; Status DC Lisinopril (Prinivil) 20 mg DAILY PO ; Start 02/17/17 at 09:00 A/P Assessment and Plan Hemiparesis of right dominant side due to cerebrovascular disease: per radiology and neuro, likely a repeat stroke due to worsening of stenosis in previously infarcted area Medication noncompliance - patient not on any medications -Brain MRI shows acute or subacute lacunar type infarct in the left bass radiata and centrum semiovale -MRA shows patchy intrinsic atherosclerotic cerebral vascular disease with significant stenosis involving the left MCA and 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 -Neurology following -Continue with aspirin, coumadin, and statin therapy- neuro recommended switch from Plavix to coumadin, although noncompliance out of the hospital would be an issue -Continue daily PT Hyponatremia: improved from admission -asymptomatic with pt eating and drinking regular diet -consider repeat BMP Hypertension: still running high at times -Lisinopril increased to 20 mg Tobacco abuse: complains of jitteriness -Tobacco counseling cessation provided -consider risks vs. benefits of nicotine patch Alcohol abuse -Alcohol cessation counseling provided -[facility] protocol -Thiamine/Folic acid/MVI daily DVT prophylaxis: Bilateral SCDs Garland Painter M3 Feb 17, 2017 09:18
--- NOTE | 2017-02-17 12:40 | HHI.PR ---
Subjective Remarks Patient reports is feeling okay. He is gaining more strength on the right upper extremity. Has not been willing to try using a walker. Only wants to use the wheelchair for now. Objective Vitals Vital Signs Date Time Temp Pulse Resp B/P (MAP) Pulse Ox O2 Delivery O2 Flow Rate FiO2 02/17/17 12:11 97.8 76 17 136/79 (98) 100 02/17/17 08:38 97.7 72 17 175/98 (123) 100 02/17/17 04:14 139/85 (103) 02/16/17 22:46 65 196/104 (134) 189/105 (133) 02/16/17 20:00 97.9 61 20 181/97 (125) 96 02/16/17 16:00 98.7 83 18 174/96 (122) 96 I/O 02/16/17 02/16/17 02/16/17 02/17/17 02/17/17 02/17/17 07:00 15:00 23:00 07:00 15:00 23:00 Output Total 1400 ml 3100 ml Balance -1400 ml -3100 ml Output Urine Total 1400 ml 3100 ml # Voids 2 Result Diagram: 02/16/17 1020 02/14/17 0611 Objective Remarks GENERAL: This is a well-nourished, well-developed patient, in no apparent distress. CARDIOVASCULAR: Normal rate and regular rhythm without murmurs, gallops, or rubs. RESPIRATORY: Good respiratory efforts. Breath sounds equal and clear to auscultation bilaterally. GASTROINTESTINAL: Abdomen soft, non-tender, non-distended. Normal active bowel sounds MUSCULOSKELETAL: Extremities without cyanosis, or edema. NEURO: Alert & Oriented x4 to person, place, time, situation. Right hand lower extremity strength is 3 out of 5. Left sided has normal strength. PSYCH: Appropriate mood and affect. 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 Patient had residual right sided weakness. He was started on aspirin but never filled the prescription because he states he could not afford the medications. He continues to drink alcohol daily. Patient readmitted again with what appear to be progression of the left hemispheric infarct. He has had worsening hemiparesis on the right on this presentation. 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 Medication noncompliance - - Appreciate neurology following. The patient was started on Plavix and aspirin. Continue statin. Telemetry reviewed since his arrival. No arrhythmia noted. Patient's biggest barriers to get better are his noncompliance and homelessness. He does not have any insurance benefit for SNF placement. Neurology recommended Coumadin to reduce risk of further stroke. Continue Coumadin. Plavix discontinued.. Case management following to see if there is any way to place him at a fdc facility where he could receive medications regularly. - Patient was counseled on the need to be compliant with treatment during the hospitalization and outpatient. - Daily PT - We'll give total of 7 mg of Coumadin today. He only received 2 doses so far. Follow INR in a.m. Currently 1.0 Hypertension: Has been untreated based on review of his records. Better controlled. -Continue lisinopril 20 mg Tobacco abuse -Tobacco counseling cessation provided. Patient has been asking for cigarettes. Nicotine patch ordered. Alcohol abuse -Alcohol cessation counseling provided -Discontinue CIWA protocol -Thiamine/Folic acid/MVI daily DVT prophylaxis: Bilateral SCDs Discharge Planning Case management following. Continue physical therapy efforts. Problem Qualifiers (1) CVA (cerebral vascular accident): Qualified Codes: I63.9 - Cerebral infarction, unspecified Sangeetha Zayas MD Feb 17, 2017 12:40
[2017-02-17] MEDS: NICOTINE 14 MG/24 HR PATCH T-DERMAL SCH (13:50)
[2017-02-17] MEDS ORDERED: WARFARIN SOD 2 MG TAB PO ONE (15:45)
[2017-02-17] MEDS: WARFARIN SOD 5 MG TAB PO SCH (16:03)
[2017-02-17] MEDS: ATORVASTATIN 10 MG TAB PO SCH (21:38)
[2017-02-18] VITALS (9 sets, daily range): BP systolic 141–163; BP diastolic 85–98; PULSE 62–77; RESP 18–20; TEMP 97.4–98.2; O2SAT 96–100
[2017-02-18] MEDS: HEPARIN SODIUM - SQ 10,000 UNITS/ML VIAL SQ SCH ×3 (02:03→23:57)
[2017-02-18] MEDS: FOLIC ACID 1 MG TAB PO SCH (07:41)
[2017-02-18] MEDS: THIAMINE HCL 100 MG TAB PO SCH (07:42)
[2017-02-18] MEDS: MULTIVITAMIN TAB PO SCH (07:42)
[2017-02-18] MEDS: REMOVE OLD PATCH T-DERMAL SCH (07:42)
[2017-02-18] MEDS: SODIUM CHLORIDE 0.9% FLUSH 10 ML FLUSH IV FLUSH SCH ×2 (07:42→20:49)
[2017-02-18] MEDS: LISINOPRIL 20 MG TAB PO SCH (07:42)
[2017-02-18] MEDS: NICOTINE 14 MG/24 HR PATCH T-DERMAL SCH (07:42)
[2017-02-18] MEDS: ASPIRIN 325 MG TAB PO SCH (07:42)
[2017-02-18 08:14] LABS: PROTHROMBIN TIME - PATIENT 10.4 SEC (9.8-11.6)
--- NOTE | 2017-02-18 09:07 | PD.PN.STU ---
Subjective Remarks Patient states R sided weakness is same as yesterday. Reportedly refused OT. Wants to take a shower. Objective Vitals Vital Signs Date Time Temp Pulse Resp B/P (MAP) Pulse Ox O2 Delivery O2 Flow Rate FiO2 02/18/17 08:13 97.4 77 18 160/89 (112) 99 02/18/17 05:35 97.5 71 18 152/87 (108) 98 02/18/17 00:44 97.8 62 18 158/95 (116) 96 02/18/17 00:00 71 02/17/17 20:15 80 02/17/17 20:08 96.1 74 20 134/84 (101) 98 02/17/17 16:29 98.6 69 17 158/86 (110) 97 02/17/17 12:11 97.8 76 17 136/79 (98) 100 02/17/17 12:00 69 I/O 02/17/17 02/17/17 02/17/17 02/18/17 02/18/17 02/18/17 07:00 15:00 23:00 07:00 15:00 23:00 Intake Total 480 ml Output Total 3100 ml 350 ml 800 ml 225 ml Balance -3100 ml 130 ml -800 ml -225 ml Intake Oral 480 ml Output Urine Total 3100 ml 350 ml 800 ml 225 ml # Bowel Movements 1 Result Diagram: 02/16/17 1020 02/14/17 0611 Objective Remarks GENERAL: Patient awake, sitting up in lying back in bed in no apparent distress. SKIN: Warm and dry. HEAD: Atraumatic. Normocephalic. EYES: Pupils equal and round. No scleral icterus. No injection or drainage. ENT: No nasal bleeding or discharge. Mucous membranes pink and moist. NECK: Trachea midline. No JVD. CARDIOVASCULAR: Regular rate and rhythm. RESPIRATORY: No accessory muscle use. Clear to auscultation. Breath sounds equal bilaterally. GASTROINTESTINAL: Abdomen soft, non-tender, nondistended. Hepatic and splenic margins not palpable. MUSCULOSKELETAL: Extremities without clubbing, cyanosis, or edema. No obvious deformities. NEUROLOGICAL: Awake and alert. No obvious cranial nerve deficits. Left extremities 5/5 strength. 2/5 strength in R LE, actively lifts off bed further than previous days but unable to move against resistance. 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 PSYCHIATRIC: Appropriate mood and affect; insight and judgment normal. Medications and IVs Current Medications Sodium Chloride (NS Flush) 2 ml UNSCH PRN IVF FLUSH AFTER USING IV ACCESS; Start 02/12/17 at 09:00; Stop 02/12/17 at 12:34; Status DC Sodium Chloride (NS Flush) 2 ml UNSCH PRN IV FLUSH FLUSH AFTER USING IV ACCESS ; Start 02/12/17 at 12:15 Sodium Chloride (NS Flush) 2 ml BID IV FLUSH Last administered on 02/18/17 07: 42; Start 02/12/17 at 21:00 Acetaminophen (Tylenol) 650 mg Q4H PRN PO TEMP > 100.4; Start 02/12/17 at 12: 15 Ondansetron HCl (Zofran Inj) 4 mg Q6H PRN IVP NAUSEA OR VOMITING; Start at 12:15 Acetaminophen (Tylenol) 650 mg Q6H PRN PO PAIN SCALE 1 TO 2; Start 02/12/17 at 12:15 Naloxone HCl (Narcan Inj) 0.4 mg UNSCH PRN IV PUSH SEE LABEL COMMENTS; Start 02/12/17 at 12:15 Magnesium Hydroxide (Milk Of Magncarrie Liq) 30 ml Q12H PRN PO Mild constipation ; Start 02/12/17 at 12:15 Aspirin (Aspirin) 325 mg ONCE ONCE PO Last administered on 02/12/17 14:25; Start 02/12/17 at 13:00; Stop 02/12/17 at 13:01; Status DC Flumazenil (Romazicon Inj) 0.2 mg Q1M PRN IV PUSH SEE LABEL COMMENTS; Start at 13:15; Stop 02/12/17 at 13:15; Status DC Lorazepam (Ativan) 1 mg Q4H PRN PO CIWA 8 - 10; Start 02/12/17 at 13:15; Stop 02/12/17 at 13:15; Status DC Lorazepam (Ativan Inj) 1 mg Q4H PRN IV PUSH CIWA 8 - 10; Start 02/12/17 at 13: 15; Stop 02/12/17 at 13:15; Status DC Lorazepam (Ativan) 2 mg Q2H PRN PO CIWA 11-14; Start 02/12/17 at 13:15; Stop 02/12/17 at 13:15; Status DC Lorazepam (Ativan Inj) 2 mg Q2H PRN IV PUSH CIWA 11-14; Start 02/12/17 at 13: 15; Stop 02/12/17 at 13:15; Status DC Lorazepam (Ativan Inj) 2 mg Q1H PRN IV PUSH CIWA 15-20; Start 02/12/17 at 13: 15; Stop 02/12/17 at 13:15; Status DC Lorazepam (Ativan Inj) 2 mg Q15M PRN IV PUSH CIWA > 20; Start 02/12/17 at 13: 15; Stop 02/12/17 at 13:15; Status DC Thiamine HCl (Vitamin B1) 100 mg DAILY PO ; Start 02/13/17 at 09:00; Stop at 09:00; Status DC Flumazenil (Romazicon Inj) 0.2 mg Q1M PRN IV PUSH SEE LABEL COMMENTS; Start at 13:31 Lorazepam (Ativan) 1 mg Q4H PRN PO CIWA 8 - 10; Start 02/12/17 at 13:30 Lorazepam (Ativan Inj) 1 mg Q4H PRN IV PUSH CIWA 8 - 10; Start 02/12/17 at 13: 30 Lorazepam (Ativan) 2 mg Q2H PRN PO CIWA 11-14; Start 02/12/17 at 13:30 Lorazepam (Ativan Inj) 2 mg Q2H PRN IV PUSH CIWA 11-14; Start 02/12/17 at 13: 30 Lorazepam (Ativan Inj) 2 mg Q1H PRN IV PUSH CIWA 15-20; Start 02/12/17 at 13: 30 Lorazepam (Ativan Inj) 2 mg Q15M PRN IV PUSH CIWA > 20; Start 02/12/17 at 13: 45 Thiamine HCl (Vitamin B1) 100 mg DAILY PO Last administered on 02/18/17 07:42 ; Start 02/13/17 at 09:00 Nicotine (Habitrol 21 Mg Patch.24 Hr) 1 patch DAILY T-DERMAL Last administered on 02/13/17 09:27; Start 02/13/17 at 09:00; Stop 02/13/17 at 09:57; Status DC Miscellaneous Information 1 DAILY T-DERMAL Last administered on 02/13/17 09: 38; Start 02/13/17 at 09:00; Stop 02/13/17 at 09:57; Status DC Enalaprilat (Vasotec Inj) 1.25 mg Q4H PRN IV PUSH For SBP > 180 or DBP > 90 Last administered on 02/17/17 03:12; Start 02/12/17 at 14:30 Aspirin (Aspirin) 325 mg DAILY PO Last administered on 02/18/17 07:42; Start 02/13/17 at 09:00 Atorvastatin Calcium (Lipitor) 10 mg HS PO Last administered on 02/17/17 21:38 ; Start 02/12/17 at 21:00 Clopidogrel Bisulfate (Plavix) 75 mg DAILY PO Last administered on 02/16/17 08 :08; Start 02/13/17 at 09:00; Stop 02/17/17 at 08:06; Status DC Sodium Chloride 1,000 ml @ 100 mls/hr Q10H IV Last administered on 02/13/17 21:00; Start 02/13/17 at 09:11; Stop 02/14/17 at 13:57; Status DC Multivitamins (Theragran) 1 tab ONCE ONCE PO Last administered on 02/13/17 09:44; Start 02/13/17 at 09:30; Stop 02/13/17 at 09:40; Status DC Multivitamins (Theragran) 1 tab DAILY PO Last administered on 02/18/17 07:42; Start 02/14/17 at 09:00 Folic Acid (Folate) 1 mg ONCE ONCE PO Last administered on 02/13/17 09:44; Start 02/13/17 at 09:30; Stop 02/13/17 at 09:39; Status DC Folic Acid (Folate) 1 mg DAILY PO Last administered on 02/18/17 07:41; Start 02/14/17 at 09:00 Iohexol (Omnipaque 350 Inj) 80 ml STK-MED ONCE IVCONTRAST Last administered on 02/13/17 12:48; Start 02/13/17 at 12:48; Stop 02/13/17 at 12:49; Status DC Lisinopril (Prinivil) 10 mg ONCE ONCE PO Last administered on 02/14/17 16:22 ; Start 02/14/17 at 14:30; Stop 02/14/17 at 14:31; Status DC Lisinopril (Prinivil) 10 mg DAILY PO Last administered on 02/16/17 08:08; Start 02/15/17 at 09:00; Stop 02/16/17 at 13:11; Status DC Heparin Sodium (Porcine) (Heparin Inj) 5,000 units Q12H SQ Last administered on 02/18/17 02:03; Start 02/15/17 at 13:00 Warfarin Sodium (Coumadin) 5 mg DAILY@1600 PO Last administered on 02/17/17 16 :03; Start 02/15/17 at 18:00; Stop 02/18/17 at 08:57; Status DC Patient Medication Teaching (Coumadin Booklet) 1 ONCE ONCE OTHER Last administered on 02/15/17 17:56; Start 02/15/17 at 17:30; Stop 02/15/17 at 17:31 ; Status DC Lisinopril (Prinivil) 20 mg DAILY PO ; Start 02/17/17 at 09:00; Stop 02/17/17 at 09:00; Status DC Lisinopril (Prinivil) 10 mg ONCE ONCE PO Last administered on 02/16/17 14:22 ; Start 02/16/17 at 13:15; Stop 02/16/17 at 13:16; Status DC Lisinopril (Prinivil) 20 mg DAILY PO Last administered on 02/18/17 07:42; Start 02/17/17 at 09:00 Nicotine (Habitrol 14 Mg Patch.24 Hr) 1 patch DAILY T-DERMAL Last administered on 02/18/17 07:42; Start 02/17/17 at 12:45 Miscellaneous Information 1 DAILY T-DERMAL Last administered on 02/18/17 07:42 ; Start 02/18/17 at 09:00 Warfarin Sodium (Coumadin) 2 mg ONCE ONCE PO Last administered on 02/17/17 16 :03; Start 02/17/17 at 15:45; Stop 02/17/17 at 15:46; Status DC Warfarin Sodium (Coumadin) 8 mg DAILY@1600 PO ; Start 02/18/17 at 16:00; Status UNV A/P Assessment and Plan Hemiparesis of right dominant side due to cerebrovascular disease: per radiology and neuro, likely a repeat stroke due to worsening of stenosis in previously infarcted area Medication noncompliance - patient not on any medications -Brain MRI shows acute or subacute lacunar type infarct in the left bass radiata and centrum semiovale -MRA shows patchy intrinsic atherosclerotic cerebral vascular disease with significant stenosis involving the left MCA and possible stenosis involving left SHEET ROCK TAPER. -Neurology following -Continue with aspirin, coumadin, and statin therapy- neuro recommended switch from Plavix to coumadin, although noncompliance out of the hospital would be an issue -Continue daily PT/OT- encouraged patient that it is important to participate fully in all of these sessions as this is his best chance of regaining strength in R side Hyponatremia: improved from admission -asymptomatic with pt eating and drinking regular diet -consider repeat BMP Hypertension: better control, mostly in 150s/80s -continue lisinopril 20 mg Tobacco abuse -Tobacco counseling cessation provided -continue nicotine patch Alcohol abuse -Alcohol cessation counseling provided -consider d/cing CIWA protocol now that patient has been admitted for >4 days -Thiamine/Folic acid/MVI daily DVT prophylaxis: Bilateral SCDs Garland Painter M3 Feb 18, 2017 09:07
--- NOTE | 2017-02-18 11:17 | HHI.PR ---
Subjective Remarks Right-sided weakness is unchanged. He is feeling more confident with the wheelchair. Reportedly refused OT. Objective Vitals Vital Signs Date Time Temp Pulse Resp B/P (MAP) Pulse Ox O2 Delivery O2 Flow Rate FiO2 02/18/17 10:19 73 02/18/17 08:13 97.4 77 18 160/89 (112) 99 02/18/17 05:35 97.5 71 18 152/87 (108) 98 02/18/17 00:44 97.8 62 18 158/95 (116) 96 02/18/17 00:00 71 02/17/17 20:15 80 02/17/17 20:08 96.1 74 20 134/84 (101) 98 02/17/17 16:29 98.6 69 17 158/86 (110) 97 02/17/17 12:11 97.8 76 17 136/79 (98) 100 02/17/17 12:00 69 I/O 02/17/17 02/17/17 02/17/17 02/18/17 02/18/17 02/18/17 07:00 15:00 23:00 07:00 15:00 23:00 Intake Total 480 ml Output Total 3100 ml 350 ml 800 ml 225 ml Balance -3100 ml 130 ml -800 ml -225 ml Intake Oral 480 ml Output Urine Total 3100 ml 350 ml 800 ml 225 ml # Bowel Movements 1 Result Diagram: 02/16/17 1020 02/14/17 0611 Objective Remarks GENERAL: This is a well-nourished, well-developed patient, in no apparent distress. CARDIOVASCULAR: Normal rate and regular rhythm without murmurs, gallops, or rubs. RESPIRATORY: Good respiratory efforts. Breath sounds equal and clear to auscultation bilaterally. GASTROINTESTINAL: Abdomen soft, non-tender, non-distended. Normal active bowel sounds MUSCULOSKELETAL: Extremities without cyanosis, or edema. NEURO: Alert & Oriented x4 to person, place, time, situation. Right hand lower extremity strength is 3 out of 5. Left sided has normal strength. PSYCH: Appropriate mood and affect. 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 Patient had residual right sided weakness. He was started on aspirin but never filled the prescription because he states he could not afford the medications. He continues to drink alcohol daily. Patient readmitted again with what appear to be progression of the left hemispheric infarct. He has had worsening hemiparesis on the right on this presentation. Patient is making some improvement. Neurology recommend senior care facility placement and continuous warfarin therapy. Per neurology, he is more likely to have a recurrent or biggest stroke if he is not on Coumadin. Per case management, the patient does not qualify for Medicaid or any SNF of benefit. He will have to return to the community. Continue to titrate Coumadin until INR is therapeutic. The patient will certainly need follow-up outpatient to monitor his Coumadin therapy. 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 Medication noncompliance - - Appreciate neurology following. The patient was started on Plavix and aspirin. Continue statin. Telemetry reviewed since his arrival. No arrhythmia noted. Patient's biggest barriers to get better are his noncompliance and homelessness. He does not have any insurance benefit for SNF placement. Neurology recommended Coumadin to reduce risk of further stroke. Continue Coumadin. Plavix discontinued - Patient was counseled on the need to be compliant with treatment during the hospitalization and outpatient. - Daily PT - Increase Coumadin to 8 mg daily. Follow INR in a.m. Currently 1.0 Hypertension: Has been untreated based on review of his records. Better controlled. -Continue lisinopril 20 mg Tobacco abuse -Tobacco counseling cessation provided. Patient has been asking for cigarettes. Nicotine patch ordered. Alcohol abuse -Alcohol cessation counseling provided -Discontinue CIWA protocol -Thiamine/Folic acid/MVI daily DVT prophylaxis: Bilateral SCDs, on prophylactic heparin subcutaneous. Coumadin. Discharge Planning Continue physical therapy efforts. Follow INR. Problem Qualifiers (1) CVA (cerebral vascular accident): Qualified Codes: I63.9 - Cerebral infarction, unspecified Sangeetha Zayas MD Feb 18, 2017 11:17
[2017-02-18] MEDS: WARFARIN SOD 4 MG TAB PO SCH (14:46)
[2017-02-18] MEDS: ATORVASTATIN 10 MG TAB PO SCH (20:49)
[2017-02-19] VITALS (11 sets, daily range): BP systolic 120–176; BP diastolic 79–96; PULSE 66–87; RESP 16–22; TEMP 97.6–98.3; O2SAT 96–99
[2017-02-19] MEDS: ENALAPRILAT 1.25 MG/ML VIAL IV PUSH PRN
[2017-02-19] MEDS ORDERED: ENALAPRILAT 1.25 MG/ML VIAL IV PUSH ONE (04:30)
[2017-02-19 08:13] LABS: INTERNATIONAL NORMALIZED RATIO 1.2 RATIO; PROTHROMBIN TIME - PATIENT 12.6 SEC (9.8-11.6)
[2017-02-19] MEDS: THIAMINE HCL 100 MG TAB PO SCH (08:37)
[2017-02-19] MEDS: ASPIRIN 325 MG TAB PO SCH (08:37)
[2017-02-19] MEDS: FOLIC ACID 1 MG TAB PO SCH (08:37)
[2017-02-19] MEDS: MULTIVITAMIN TAB PO SCH (08:37)
[2017-02-19] MEDS: LISINOPRIL 20 MG TAB PO SCH (08:37)
[2017-02-19] MEDS: REMOVE OLD PATCH T-DERMAL SCH (08:38)
[2017-02-19] MEDS: NICOTINE 14 MG/24 HR PATCH T-DERMAL SCH (08:38)
[2017-02-19] MEDS: SODIUM CHLORIDE 0.9% FLUSH 10 ML FLUSH IV FLUSH SCH ×2 (08:41→20:34)
[2017-02-19] MEDS: HEPARIN SODIUM - SQ 10,000 UNITS/ML VIAL SQ SCH (12:23)
--- NOTE | 2017-02-19 14:05 | HHI.PR ---
Subjective Remarks Follow-up for CVA. Patient is resting well in bed. No acute concerns. Denies any chest pain, shortness of breath, fever or chills. Objective Vitals Vital Signs Date Time Temp Pulse Resp B/P (MAP) Pulse Ox O2 Delivery O2 Flow Rate FiO2 02/19/17 08:45 98.3 76 18 151/85 (107) 97 02/19/17 08:28 75 02/19/17 04:00 98.0 70 20 172/ 99 02/19/17 00:19 78 02/19/17 00:00 97.9 66 22 176/96 (122) 98 02/18/17 20:30 66 02/18/17 20:00 97.5 65 20 160/93 (115) 100 02/18/17 15:47 98.2 69 18 163/98 (119) 97 I/O 02/18/17 02/18/17 02/18/17 02/19/17 02/19/17 02/19/17 06:59 14:59 22:59 06:59 14:59 22:59 Intake Total 820 ml Output Total 800 ml 225 ml 525 ml Balance -800 ml -225 ml 820 ml -525 ml Intake Oral 820 ml Output Urine Total 800 ml 225 ml 525 ml Result Diagram: 02/16/17 1020 Imaging Last Impressions Neck CTA 02/13/17910 Signed Impressions: Service Date/Time: January 12:35 - CONCLUSION: Atherosclerotic plaque without luminal narrowing. Brayan Gotti Jr., MD Head CTA 02/13/17910 Signed Impressions: Service Date/Time: January 12:35 - CONCLUSION: Diffuse atherosclerotic disease with a hemodynamically significant stenosis involving the left M1 segment and left P2 segment. Brayan Gotti Jr., MD Head CT 02/12/17 09 Signed Impressions: Service Date/Time: Sunday, February 12, 2017 09:12 - CONCLUSION: No acute cranial findings Ba Turcios MD Chest X-Ray 02/12/17 09 Signed Impressions: Service Date/Time: Sunday, February 12, 2017 09:26 - CONCLUSION: No acute disease. Brayan Gotti Jr., MD Head Magnetic Resonance Angiography 02/12/17 0000 Signed Impressions: Service Date/Time: Sunday, February 12, 2017 13:02 - CONCLUSION: Findings of patchy intrinsic atherosclerotic cerebrovascular disease including what appears to be a significant stenosis involving the left MCA and possible stenosis involving the left REGIONAL CLINICAL DIRECTOR. Ba Turcios MD Brain MRI 02/12/17 0000 Signed Impressions: Service Date/Time: Sunday, February 12, 2017 13:02 - CONCLUSION: 1. Acute or subacute lacunar type infarcts in the left bass radiata and centrum semiovale. This may explain current clinical symptoms. 2. Findings are superimposed on baseline cortical and central atrophy. Again, the ventricles are somewhat prominent compared to degree of cortical atrophy an element of NPH may be considered in the appropriate clinical setting. Yandel Storm MD Objective Remarks GENERAL: Alert, NAD SKIN: Warm and dry. HEAD: Normocephalic. EYES: No scleral icterus. No injection or drainage. NECK: Supple, trachea midline. No JVD or lymphadenopathy. CARDIOVASCULAR: Regular rate and rhythm without murmurs, gallops, or rubs. RESPIRATORY: Breath sounds equal bilaterally. No accessory muscle use. GASTROINTESTINAL: Abdomen soft, non-tender, nondistended. MUSCULOSKELETAL: No cyanosis, or edema. Neuro: Right lower extremity strength is 3/5. BACK: Nontender without obvious deformity. No CVA tenderness. Procedures None. 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 Patient had residual right sided weakness. He was started on aspirin but never filled the prescription because he states he could not afford the medications. He continues to drink alcohol daily. Patient readmitted again with what appear to be progression of the left hemispheric infarct. He has had worsening hemiparesis on the right on this presentation. Patient is making some improvement. Neurology recommend fdc facility placement and continuous warfarin therapy. Per neurology, he is more likely to have a recurrent or biggest stroke if he is not on Coumadin. Per case management, the patient does not qualify for Medicaid or any SNF of benefit. He will have to return to the community. Continue to titrate Coumadin until INR is therapeutic. The patient will certainly need follow-up outpatient to monitor his Coumadin therapy. 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 - Appreciate neurology following. Telemetry reviewed since his arrival. No arrhythmia noted. Patient's biggest barriers to get better are his noncompliance and homelessness. He does not have any insurance benefit for SNF placement. Neurology recommended Coumadin to reduce risk of further stroke. - Continue Warfarin and Aspirin 325mg Qday. Consider Aspirin 81mg Qday if Warfarin or other anticoagulation continued. - Patient was counseled on the need to be compliant with treatment during the hospitalization and outpatient. - Due concern over non-compliance, if okay with neurology, we may consider Apixaban. - However, no clear indication for Apixaban at this point. Hypertension - Continue lisinopril 20 mg Tobacco abuse - Tobacco counseling cessation provided. Patient has been asking for cigarettes. Nicotine patch ordered. Alcohol abuse -Alcohol cessation counseling provided -Discontinue CIWA protocol -Thiamine/Folic acid/MVI daily DVT prophylaxis: Bilateral SCDs, on prophylactic heparin subcutaneous. Coumadin. Problem Qualifiers (1) CVA (cerebral vascular accident): Qualified Codes: I63.9 - Cerebral infarction, unspecified Harry Chamberlain DO Feb 19, 2017 14:05
[2017-02-19] MEDS: WARFARIN SOD 4 MG TAB PO SCH (16:59)
[2017-02-19] MEDS: ATORVASTATIN 10 MG TAB PO SCH (20:33)
[2017-02-20] MEDS: HEPARIN SODIUM - SQ 10,000 UNITS/ML VIAL SQ SCH (00:12)
[2017-02-20 00:22] VITALS: BP 161/87; PULSE 67; RESP 18; TEMP 97.6; O2SAT 96
[2017-02-20 04:55] VITALS: BP 159/99; PULSE 72; RESP 18; TEMP 98; O2SAT 97
--- NOTE | 2017-02-20 08:14 | HHI.PR ---
Subjective Remarks sr Objective Vital Signs Date Time Temp Pulse Resp B/P (MAP) Pulse Ox O2 Delivery O2 Flow Rate FiO2 02/20/17 04:55 98.0 72 18 159/99 (119) 97 02/20/17 00:22 97.6 67 18 161/87 (111) 96 02/19/17 23:00 67 02/19/17 21:29 97.6 69 18 145/93 (110) 96 02/19/17 16:25 98.3 77 16 134/89 (104) 97 02/19/17 13:15 87 02/19/17 12:25 97.7 80 18 120/79 (93) 97 02/19/17 08:45 98.3 76 18 151/85 (107) 97 02/19/17 08:28 75 I/O 02/19/17 02/19/17 02/19/17 02/20/17 02/20/17 02/20/17 07:00 15:00 23:00 07:00 15:00 23:00 Intake Total 720 ml Output Total 525 ml 280 ml 400 ml Balance -525 ml 440 ml -400 ml Intake Oral 720 ml Output Urine Total 525 ml 280 ml 400 ml # Voids 3 # Bowel Movements 1 Result Diagram: 02/16/17 1020 Objective Remarks va os old ? cataract vff ok od best effort 5/5 rue and rle nl speech no change 02/20/17 on toilet nad looks well Assessment and Plan Assessment and Plan imp cta neck nl cta cow shows sign left mca stenosis and now has extened his infarct on asa i think his bes t chance for future stroke free is coumadin he need social work coordinator to see if he can get into a nh and live there instead of street i dw him and he seems amenable to that if not on coumadin he is likley to have more cva and readmit here and wind up in nh eventually anyway so i reccomend sq heparin started at 5000 bid and coumadin tonight will ask med team to start and dc plavix and dc asa when inr >1.9 02/17/17 stable over the weekend ideally soci services could get him medicaid and nhplacement inc coumadin dose as inr not bumped dc plavix now 02/20/17 stable neuro i do not see a good outcome here if he is living on the street and on coumadin we could use plavix instead but i am not confident his outcome will be as good as on coumadin does he have any family we could call and have him move to their area? i do not see a good outcome here in this case if he goes back to live on the street, likely will have another cva and then be disabled enough he will then go into correction which seems ironic to me Madi Rangel MD Feb 20, 2017 08:14
[2017-02-20 08:45] VITALS: BP 125/79; PULSE 75; RESP 17; TEMP 98.4; O2SAT 96
--- NOTE | 2017-02-20 08:48 | HHI.PR ---
Subjective Remarks Follow-up for CVA. No acute concerns. Patient reports that he does not have any family or friends that he can stay with in this area. He has sisters in [place] but he does not keep in touch with them. He does not even know if they're alive or not. Objective Vitals Vital Signs Date Time Temp Pulse Resp B/P (MAP) Pulse Ox O2 Delivery O2 Flow Rate FiO2 02/20/17 04:55 98.0 72 18 159/99 (119) 97 02/20/17 00:22 97.6 67 18 161/87 (111) 96 02/19/17 23:00 67 02/19/17 21:29 97.6 69 18 145/93 (110) 96 02/19/17 16:25 98.3 77 16 134/89 (104) 97 02/19/17 13:15 87 02/19/17 12:25 97.7 80 18 120/79 (93) 97 I/O 02/19/17 02/19/17 02/19/17 02/20/17 02/20/17 02/20/17 07:00 15:00 23:00 07:00 15:00 23:00 Intake Total 720 ml Output Total 525 ml 280 ml 400 ml Balance -525 ml 440 ml -400 ml Intake Oral 720 ml Output Urine Total 525 ml 280 ml 400 ml # Voids 3 # Bowel Movements 1 Result Diagram: 02/16/17 1020 Imaging Last Impressions Neck CTA 02/13/17910 Signed Impressions: Service Date/Time: January 12:35 - CONCLUSION: Atherosclerotic plaque without luminal narrowing. Brayan Gotti Jr., MD Head CTA 02/13/17910 Signed Impressions: Service Date/Time: January 12:35 - CONCLUSION: Diffuse atherosclerotic disease with a hemodynamically significant stenosis involving the left M1 segment and left P2 segment. Brayan Gotti Jr., MD Head CT 02/12/17 09 Signed Impressions: Service Date/Time: Sunday, February 12, 2017 09:12 - CONCLUSION: No acute cranial findings Ba Turcios MD Chest X-Ray 02/12/17 09 Signed Impressions: Service Date/Time: Sunday, February 12, 2017 09:26 - CONCLUSION: No acute disease. Brayan Gotti Jr., MD Head Magnetic Resonance Angiography 02/12/17 0000 Signed Impressions: Service Date/Time: Sunday, February 12, 2017 13:02 - CONCLUSION: Findings of patchy intrinsic atherosclerotic cerebrovascular disease including what appears to be a significant stenosis involving the left MCA and possible stenosis involving the left NEON ELECTRICIAN. Ba Turcios MD Brain MRI 02/12/17 0000 Signed Impressions: Service Date/Time: Sunday, February 12, 2017 13:02 - CONCLUSION: 1. Acute or subacute lacunar type infarcts in the left bass radiata and centrum semiovale. This may explain current clinical symptoms. 2. Findings are superimposed on baseline cortical and central atrophy. Again, the ventricles are somewhat prominent compared to degree of cortical atrophy an element of NPH may be considered in the appropriate clinical setting. Yandel Storm MD Objective Remarks GENERAL: Alert, NAD SKIN: Warm and dry. HEAD: Normocephalic. EYES: No scleral icterus. No injection or drainage. NECK: Supple, trachea midline. No JVD or lymphadenopathy. CARDIOVASCULAR: Regular rate and rhythm without murmurs, gallops, or rubs. RESPIRATORY: Breath sounds equal bilaterally. No accessory muscle use. GASTROINTESTINAL: Abdomen soft, non-tender, nondistended. MUSCULOSKELETAL: No cyanosis, or edema. Neuro: Right lower extremity strength is 3/5. BACK: Nontender without obvious deformity. No CVA tenderness. Procedures None. 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 Patient had residual right sided weakness. He was started on aspirin but never filled the prescription because he states he could not afford the medications. He continues to drink alcohol daily. Patient readmitted again with what appear to be progression of the left hemispheric infarct. He has had worsening hemiparesis on the right on this presentation. Patient is making some improvement. Neurology recommend retirement facility placement and continuous warfarin therapy. Per neurology, he is more likely to have a recurrent or biggest stroke if he is not on Coumadin. Per case management, the patient does not qualify for Medicaid or any SNF of benefit. He will have to return to the community. Continue to titrate Coumadin until INR is therapeutic. The patient will certainly need follow-up outpatient to monitor his Coumadin therapy. 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 - Appreciate neurology following. Telemetry reviewed since his arrival. No arrhythmia noted. Patient's biggest barriers to get better are his noncompliance and homelessness. He does not have any insurance benefit for SNF placement. - Discussed with neurologist Dr. Rangel at length today. The recommendation would be to continue warfarin for stroke prevention. However patient is homeless and very likely will not be able to do INR checks as well as maintain dietary restrictions associated with taking Coumadin. At this point will believe best course of action would be to put patient on Plavix 75 mg daily for stroke prevention. - I tried to contact patient's sister. However I did not get any response. Hypertension Hyperlipidemia - Continue amlodipine and lisinopril. - Continue Lipitor 40 mg daily at bedtime. Tobacco abuse - Tobacco counseling cessation provided. Patient has been asking for cigarettes. Nicotine patch ordered. Alcohol abuse -Alcohol cessation counseling provided -Discontinue CIWA protocol -Thiamine/Folic acid/MVI daily Full code. Ambulation, SCDs. Problem Qualifiers (1) Hemiparesis due to cerebrovascular disease: Qualified Codes: I67.9 - Cerebrovascular disease, unspecified; G81.93 - Hemiplegia, unspecified affecting right nondominant side (2) CVA (cerebral vascular accident): Qualified Codes: I63.9 - Cerebral infarction, unspecified (3) HTN (hypertension): Qualified Codes: I10 - Essential (primary) hypertension Harry Chamberlain DO Feb 20, 2017 8:48 am
[2017-02-20] MEDS: NICOTINE 14 MG/24 HR PATCH T-DERMAL SCH (09:00)
[2017-02-20] MEDS: REMOVE OLD PATCH T-DERMAL SCH (09:00)
[2017-02-20] MEDS: SODIUM CHLORIDE 0.9% FLUSH 10 ML FLUSH IV FLUSH SCH (09:00)
[2017-02-20] MEDS: FOLIC ACID 1 MG TAB PO SCH (09:31)
[2017-02-20] MEDS: THIAMINE HCL 100 MG TAB PO SCH (09:31)
[2017-02-20] MEDS: LISINOPRIL 20 MG TAB PO SCH (09:31)
[2017-02-20] MEDS: MULTIVITAMIN TAB PO SCH (09:31)
[2017-02-20] MEDS: ASPIRIN 325 MG TAB PO SCH (09:39)
[2017-02-20] MEDS ORDERED: PLAV75TA29 PO (11:17)
[2017-02-20] MEDS ORDERED: AMLO10 PO (11:17)
[2017-02-20] MEDS ORDERED: LISI30TA4 PO (11:17)
[2017-02-20] MEDS ORDERED: THIA100 PO (11:17)
[2017-02-20] MEDS ORDERED: FOLI1TAB6 PO (11:17)
[2017-02-20] MEDS ORDERED: LIPI40TA PO (11:43)
[2017-02-20 12:50] VITALS: BP 110/73; PULSE 80; RESP 17; TEMP 98.1; O2SAT 97
[2017-02-20] MEDS ORDERED: WHEEMIS3 (14:47)
--- NOTE | 2017-02-20 14:57 | HHI.DS ---
Discharge Summary Admission Date Feb 13, 2017 at 8:57 am Discharge Date: Feb 20, 2017 Admitting Diagnosis CVA (1) Hemiparesis ICD Code: G81.90 - Hemiplegia, unspecified affecting unspecified side (2) Hemiparesis due to cerebrovascular disease ICD Code: I67.9 - Cerebrovascular disease, unspecified; G81.90 - Hemiplegia, unspecified affecting unspecified side (3) Hemiparesis of right dominant side ICD Code: G81.91 - Hemiplegia, unspecified affecting right dominant side (4) CVA (cerebral vascular accident) ICD Code: I63.9 - Cerebral infarction, unspecified Status: Acute (5) HTN (hypertension) ICD Code: I10 - Essential (primary) hypertension Procedures None. Brief History - From Admission 61-year-old homeless man with a history of alcohol abuse, recent [place] and CVA was brought to the ED by EMS for evaluation of right sided lower extremity weakness as well as RUE. Patient states, yesterday he was walking using his walker he started noticing right lower extremity weakness, however was able to drag himself home. However, at some point overnight he had profound right lower extremity weakness with patient was unable to move his leg. He also noticed some slurring of the speech. He also reports some mild right upper extremity weakness. He was recently diagnosed with lacunar infarct in discharge home on aspirin as well as statin and oral antihypertensive medications. Patient states , he has been unable to take his medicines. He does have a history of alcohol abuse, and drinks an average 2-3 beers a day. He currently denies any GI bleed , shortness of breath or chest pain. CBC/BMP: 02/16/17 1020 Significant Findings Laboratory Tests Test 02/18/17 06:13 02/19/17 05:25 Prothrombin Time 12.6 SEC (9.8-11.6) Imaging Last Impressions Neck CTA 02/13/17910 Signed Impressions: Service Date/Time: January 12:35 - CONCLUSION: Atherosclerotic plaque without luminal narrowing. Brayan Gotti Jr., MD Head CTA 02/13/17910 Signed Impressions: Service Date/Time: January 12:35 - CONCLUSION: Diffuse atherosclerotic disease with a hemodynamically significant stenosis involving the left M1 segment and left P2 segment. Brayan Gotti Jr., MD Head CT 02/12/17899 Signed Impressions: Service Date/Time: Sunday, February 12, 2017 09:12 - CONCLUSION: No acute cranial findings Ba Turcios MD Chest X-Ray 02/12/17899 Signed Impressions: Service Date/Time: Sunday, February 12, 2017 09:26 - CONCLUSION: No acute disease. Brayan Gotti Jr., MD Head Magnetic Resonance Angiography 02/12/17 0000 Signed Impressions: Service Date/Time: Sunday, February 12, 2017 13:02 - CONCLUSION: Findings of patchy intrinsic atherosclerotic cerebrovascular disease including what appears to be a significant stenosis involving the left MCA and possible stenosis involving the left CHILD WELFARE MANAGER. Ba Turcios MD Brain MRI 02/12/17 0000 Signed Impressions: Service Date/Time: Sunday, February 12, 2017 13:02 - CONCLUSION: 1. Acute or subacute lacunar type infarcts in the left bass radiata and centrum semiovale. This may explain current clinical symptoms. 2. Findings are superimposed on baseline cortical and central atrophy. Again, the ventricles are somewhat prominent compared to degree of cortical atrophy an element of NPH may be considered in the appropriate clinical setting. Yandel Storm MD PE at Discharge GENERAL: Alert, NAD SKIN: Warm and dry. HEAD: Normocephalic. EYES: No scleral icterus. No injection or drainage. NECK: Supple, trachea midline. No JVD or lymphadenopathy. CARDIOVASCULAR: Regular rate and rhythm without murmurs, gallops, or rubs. RESPIRATORY: Breath sounds equal bilaterally. No accessory muscle use. GASTROINTESTINAL: Abdomen soft, non-tender, nondistended. MUSCULOSKELETAL: No cyanosis, or edema. Neuro: Right lower extremity strength is 3/5. BACK: Nontender without obvious deformity. No CVA tenderness. Pt update on day of discharge Patient is currently doing well. No acute concerns. No fever or chills. Hospital Course 61-year-old male who is homeless and recently admitted with CVA. Patient had residual right sided weakness. He was started on aspirin but never filled the prescription because he states he could not afford the medications. He continues to drink alcohol daily. Patient readmitted again with what appear to be progression of the left hemispheric infarct. He has had worsening hemiparesis on the right on this presentation. Patient is making some improvement. Neurology recommend correction facility placement and continuous warfarin therapy. Per neurology, he is more likely to have a recurrent or biggest stroke if he is not on Coumadin. Per case management, the patient does not qualify for Medicaid or any SNF of benefit. He will have to return to the community. Continue to titrate Coumadin until INR is therapeutic. The patient will certainly need follow-up outpatient to monitor his Coumadin therapy. 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 - Appreciate neurology following. Telemetry reviewed since his arrival. No arrhythmia noted. Patient's biggest barriers to get better are his noncompliance and homelessness. He does not have any insurance benefit for SNF placement. - Discussed with neurologist Dr. Rangel at length today. The recommendation would be to continue warfarin for stroke prevention. However patient is homeless and very likely will not be able to do INR checks as well as maintain dietary restrictions associated with taking Coumadin. At this point will believe best course of action would be to put patient on Plavix 75 mg daily for stroke prevention. - I tried to contact patient's sister. However I did not get any response. Hypertension Hyperlipidemia - Continue amlodipine and lisinopril. - Continue Lipitor 40 mg daily at bedtime. Tobacco abuse - Tobacco counseling cessation provided. Patient has been asking for cigarettes. Nicotine patch ordered. Alcohol abuse -Alcohol cessation counseling provided -Discontinue CIWA protocol -Thiamine/Folic acid/MVI daily Full code. Ambulation, SCDs. Pt Condition on Discharge: Good Discharge Disposition: Discharge Home Discharge Time: > 30 minutes Discharge Instructions DIET: Follow Instructions for: Heart Healthy Diet Activities you can perform: Regular-No Restrictions Follow up Referrals: PCP Follow-up - 1 Week with Lacyabdoul howard PCP Follow-up New Medications: Atorvastatin (Lipitor) 40 Mg Tab 40 MG PO HS for Cholesterol Management, #90 TAB 6 Refills Clopidogrel (Plavix) 75 Mg Tab 75 MG PO DAILY for Blood Clot Prevention, #90 TAB 5 Refills Lisinopril (Lisinopril) 30 Mg Tab 30 MG PO DAILY for Blood Pressure Management, #90 TAB 5 Refills Wheelchair (Wheelchair) 1 Mis Mis EA .ROUTE DIRECTED, #1 0 Refills Amlodipine (Norvasc) 10 Mg Tab 10 MG PO DAILY for Blood Pressure Management, #90 TAB 5 Refills Continued Medications: Folic Acid (Folic Acid) 1 Mg Tablet 1 MG PO DAILY for Nutritional Supplement for 30 Days, #30 TAB (This prescription has been renewed) Thiamine HCl (Gnp Vitamin B-1) 100 Mg Tab 100 MG PO DAILY for Nutritional Supplement for 30 Days, #30 TAB (This prescription has been renewed) Discontinued Medications: Aspirin DR (Aspirin EC) 325 Mg Tabdr 325 MG PO DAILY for Blood Clot Prevention for 30 Days, #30 TAB Atorvastatin (Lipitor) 10 Mg Tab 10 MG PO HS for Cholesterol Management for 30 Days, #30 TAB Lisinopril (Lisinopril) 5 Mg Tab 5 MG PO DAILY for Blood Pressure Management, #30 TAB 0 Refills Nifedipine ER 24 HR (Nifedipine ER 24 HR) 60 Mg Tab 60 MG PO DAILY for Blood Pressure Management for 30 Days, #30 TAB Harry Chamberlain DO Feb 20, 2017 2:57 pm
== END 2017-02-20 14:36 | disposition home or self-care (01) | DRG 65 ==
LOC: NEPE 08:31 → NEDA 12:17 → NEPHCDU 13:10 → UNDODISOB 13:11 → OBSVTOIN 02-13 08:57 → N05A 02-13 19:13
PROVIDERS: ADMIT Family Medicine; ATTEND Hospitalist
DX: I63.9 Cerebral infarction, unspecified (principal); G81.91 Hemiplegia, unspecified affecting right dominant side; E87.1 Hypo-osmolality and hyponatremia; I10 Essential (primary) hypertension; I69.351 Hemiplegia and hemiparesis following cerebral infarction affecting right dominant side; I25.2 Old myocardial infarction; R47.81 Slurred speech; E78.5 Hyperlipidemia, unspecified; F17.210 Nicotine dependence, cigarettes, uncomplicated; F10.10 Alcohol abuse, uncomplicated; Z59.0 Homelessness; Z91.14 Patient's other noncompliance with medication regimen; Z79.82 Long term (current) use of aspirin; F41.9 Anxiety disorder, unspecified
CPT/HCPCS: 70450; 70496; 70498; 70544; 70551; 71010; 76937; 80048; 80061; 80307; 82550; 84484; 85025; 85027; 85610; 93005; 99285; G0378; J1644; J7030; Q9967